=== PATIENT | male | born 1945 | race Caucasian/White ===

== ENCOUNTER 2018-09-07 19:32 | Inpatient (IN) | payer MEDICARE, MEDICAID ==
--- NOTE | 2018-09-07 19:54 | ED Physician Chart ---
ED Chief Complaint/HPI - Patient Information Date Seen:: 09/07/18 Time Seen:: 19:49 Chief Complaint:: trying to kill himself History of Present Illness:: this is a 72 yo male who was sent from the retirement for evaluation and treatment of his mental condition. Allergies:: Allergies Allergy/AdvReac Type Severity Reaction Status Date / Time benztropine [From Cogentin] Allergy Verified 09/07/18 19:37 fluphenazine [From Prolixin] Allergy Verified 09/07/18 19:37 haloperidol [From Haldol] Allergy Verified 09/07/18 19:37 fluoride Allergy Uncoded 09/07/18 19:37 Vitals:: Vital Signs - 8 hr 09/07/18 19:38 Temp 97.1 F HR 92 RR 17 BP 154/76 O2 Sat % 97 Historian:: Medical Records Review:: Nurse's Note Reviewed, Old Chart Reviewed ED Review of Systems - Review of Systems General/Constitutional: No fever, No chills, No weight loss, No weakness, No diaphoresis, No edema, No loss of appetite, Other (this patient is unable to give a review of systems.) Skin: No skin lesions, No rash, No bruising Head: No headache, No light-headedness Eyes: No loss of vision, No pain, No diplopia ENT: No earache, No nasal drainage, No sore throat, No tinnitus Neck: No neck pain, No swelling, No thyromegaly, No stiffness, No mass noted Cardio Vascular: No chest pain, No palpitations, No PND, No orthopnea, No edema Pulmonary: No SOB, No cough, No sputum, No wheezing GI: No nausea, No vomiting, No diarrhea, No pain, No melena, No hematochezia, No constipation, No hematemesis G/U: No dysuria, No frequency, No hematuria Musculoskeletal: No bone or joint pain, No back pain, No muscle pain Endocrine: No polyuria, No polydipsia Psychiatric: No prior psych history, No depression, No anxiety, No suicidal ideation Hematopoietic: No bruising, No lymphadenopathy Allergic/Immuno: No urticaria, No angioedema Neurological: No syncope, No focal symptoms, No weakness, No paresthesia, No headache, No seizure, No dizziness, No confusion, No vertigo ED Past Medical History - Past Medical History Obtainable: Yes Past Medical History: HTN, DM, CAD, Dyslipidemia, PUD/GERD, Thyroid disorder, Dementia Family History: None Social History: Non Smoker, No Alcohol, No Drug Use Surgical History: None Psychiatricy History: Depression, Dementia Medication: Reviewed Family Medical History - Family Member Mother History Unknown: Yes ED Physical Exam - Physical Examination General/Constitutional: Awake, Well-developed, well-nourished, Alert, No distress, GCS 15, Non-toxic appearing, Ambulatory Other Gen/Cons comments:: chorea and restless and talking at random Head: Atraumatic Eyes: Lids, conjuctiva normal, PERRL, EOMI Skin: Nl inspection, No rash, No skin lesions, No ecchymosis, Well hydrated, No lymphadenopathy ENMT: External ears, nose nl, Nasal exam nl, Lips, teeth, gums nl Neck: Nontender, Full ROM w/o pain, No JVD, No nuchal rigidity, No bruit, No mass, No stridor Respiratory: Nl effort/Exclusion, Clear to Auscultation, No Wheeze/Rhonchi/Rales Cardio Vascular: No murmur, gallop, rubs, NL S1 S2 Other Cardio Vascular comments:: atrial fib GI: No tenderness/rebounding/guarding, No organomegaly, No hernia, Normal BS's, Nondistended, No mass/bruits, No McBurney tenderness : No CVA tenderness Extremities: No tenderness or effusion, Full ROM, normal strength in all extremities, No edema, Normal digits & nails Neuro/Psych: Alert/oriented, DTR's symmetric, Normal sensory exam, Normal motor strength, Judgement/insight normal, Mood normal, Normal gait, No focal deficits Misc: Normal back, No paraspinal tenderness ED Labs/Radiology/EKG Results - EKG Interpretations EKG Time:: 20:36 Rate & Rhythm: rate=86, atrial fib ED Assessment - Assessment General Assessment: dementia ED Septic Shock - . Is Septic Shock (SBP<90, OR Lactate>4 mmol\L) present?: No - <6hrs of presentation: Vital Signs: Vital Signs - 8 hr 09/07/18 19:38 Temp 97.1 F HR 92 RR 17 BP 154/76 O2 Sat % 97 ED Reassessment (Disposition) - Reassessment Reassessment Condition:: Unchanged - Diagnosis Diagnosis:: psychosis - Patient Disposition Discharge/Transfer:: Acute Care w/in this hosp Admitting Medical Physician:: Seamus Gomez Admitting Psych Physician:: Yamileth Mojica Condition at Disposition:: Unchanged
[2018-09-07 21:05] LABS: % BASOPHILS 0.5 % (0.0-2.0); % LYMPHOCYTES 14.4 % (20.0-50.0); % MONOCYTES 9.3 % (2.0-10.0); % NEUTROPHILS 74.8 % (40.0-80.0); EOSINOPHILE ABSOLUTE 0.1 Th/cmm (0.1-0.4); HEMATOCRIT 34.1 % (41.0-60); HEMOGLOBIN 11.1 gm/dL (12-16); LYMPHOCYTE ABSOLUTE 0.9 Th/cmm (1.5-3.0); MEAN CELL VOLUME 72.4 fl (80-99); MEAN CORPUSCULAR HEMOGLOBIN 23.5 pg (27.0-31.0); MEAN CORPUSCULAR HGB CONC 32.5 pg (28.0-36.0); MEAN PLATELET VOLUME 8.4 fl; MONOCYTE ABSOLUTE 0.6 Th/cmm (0.3-1.0); NEUTROPHILE ABSOLUTE 4.4 Th/cmm (1.8-8.0); PLATELET COUNT 317 Th/cmm (150-400); RED BLOOD COUNT 4.71 Mil/cmm (3.80-5.80); RED CELL DISTRIBUTION WIDTH 19.3 % (11.5-20.0)
[2018-09-07 21:06] LABS: INR 1.03 (0.5-1.4); PROTHROMBIN TIME (TEST) 10.7 SECONDS (9.5-11.5)
[2018-09-07 21:16] LABS: ALB/GLOB RATIO 2.2 (1.0-1.8); ALBUMIN 4.1 gm/dL (4.2-5.5); ALKALINE PHOSPHATASE 46 U/L (34-104); ANION GAP 15.2 (7.0-16.0); BILIRUBIN,TOTAL 0.3 mg/dL (0.3-1.0); BUN - UREA NITROGEN 17 mg/dL (7-25); CALCIUM SERUM 9.1 mg/dL (8.6-10.3); CARBON DIOXIDE 27.8 mEq/L (21.0-31.0); CHLORIDE 99 mEq/L (98-107); CREATININE - SERUM 0.5 mg/dL (0.7-1.3); GLUCOSE 110 mg/dL (70-105); SGOT 11 U/L (13-39); SGPT/ALT 11 U/L (7-52); SODIUM SERUM 138 mEq/L (136-145)
[2018-09-07 22:08] VITALS: BP 134/80
[2018-09-07] MEDS ORDERED: Maalox 30 mL Cup PO PRN (22:13)
[2018-09-07] MEDS ORDERED: Magnesium Hydroxide (MOM) 30 mL UDC PO PRN (22:13)
[2018-09-07 22:32] LABS: CHOLESTEROL 103 mg/dL (<200); HDL -HIGH DENSITY LIPOPROTEIN 38 mg/dL (23-92); TRIGLYCERIDES 96 mg/dL (<150)
[2018-09-08] MEDS: Levothyroxine 0.025 Mg Tab PO SCH (06:34)
[2018-09-08] MEDS: Pantoprazole 40 mg EC Tab PO SCH (09:07)
[2018-09-08] MEDS: Multivitamin w/ Minerals Tab PO SCH (09:08)
[2018-09-08] MEDS: Fish Oil 1,000 MG SGL PO SCH (09:08)
--- NOTE | 2018-09-08 10:47 | Diagnostic Imaging Report ---
Portable chest x-ray HISTORY: Cough The heart appears enlarged. There is a poor inspiration. Allowing for this factor, no definite focal processes are seen. Atherosclerotic calcination seen in the aorta. Mild sclerotic density noted within the medullary region of the proximal right humerus. Findings may be associated with an enchondroma. IMPRESSION: 1. Allowing for a poor inspiration, no acute focal pulmonary processes 2. Cardiomegaly with atherosclerotic vascular changes
--- NOTE | 2018-09-08 18:38 | Psychiatric Evaluation ---
DATE OF SERVICE: 09/08/2018 JUSTIFICATION FOR HOSPITALIZATION: The patient apparently was having thoughts of killing himself. HISTORY OF PRESENT ILLNESS: A 72-year-old male, AO to name. He knows he is in a psychiatric hospital. He is not quite sure about why he is here, he knows the city, he knows it is 2018 and tells me it is 1946, does not know the month. Mood "okay." The patient slept fairly well last night with opener tender awakenings. The patient is not a very good historian, not really able to converse and not able to tell me why he is in the hospital. Staff noting he seems quite confused. PAST PSYCHIATRIC HISTORY: Unclear, concerns for dementia. FAMILY HISTORY: Noncontributory. SOCIAL HISTORY: Coming in from a care home. The patient tells me he was born in [place], [place]; states that he is not and has no kids. MEDICATIONS: Noted. ALLERGIES: Noted. MENTAL STATUS EXAMINATION: Stated age. Fair eye contact. Speech within normal limits. Mood "okay." Affect flat. Thought processes were disoriented and disorganized, no SI currently, no HI. No psychotic symptoms. Insight and judgment diminished. PROVISIONAL DIAGNOSES: History of schizoaffective disorder. Concerns for dementia. MEDICAL: Please see full H and P. Medications were reviewed as well. ESTIMATED LENGTH OF STAY: 7-10 days. ASSESSMENT: The patient coming in, suicidal ideations. Concerns for safety. PLAN: Treatment plan includes group as well as milieu therapy. CONDITIONS FOR DISCHARGE: Improved mood, improved affect, cessation of any SI. JOB# [id number]
[2018-09-08] MEDS ORDERED: Dextrose 50% 50 mL Abboject IVP PRN (19:02)
[2018-09-08] MEDS ORDERED: GLUCAGON HCl 1 MG KIT IM PRN (19:02)
--- NOTE | 2018-09-08 19:33 | History & Physical ---
ADMIT DATE: 09/07/2018 REASON FOR ADMISSION: Suicidal ideation. HISTORY OF PRESENT ILLNESS: A 72-year-old male with past medical history of psychiatric disorder, presents from half-way for evaluation of suicidal ideation. The patient is a poor historian. He appears forgetful and unable to recall to his various conditions. History is taken from records. The patient appears to be in no distress. He is walking in the hallways aimlessly. PAST MEDICAL HISTORY: The patient has history of diabetes mellitus type 2, atrial fibrillation, hypertension, seizure disorder, hyperlipidemia, hypothyroidism, gastroesophageal reflux disorder and psychiatric disorder. MEDICATIONS: As per reconciliation. ALLERGIES: No known drug allergies. SOCIAL HISTORY: No known tobacco, alcohol, or drug use. FAMILY HISTORY: Noncontributory. REVIEW OF SYSTEMS: IMMUNOLOGIC: No recurrent infection. CARDIOVASCULAR: The patient has history of atrial fibrillation and hypertension. GASTROINTESTINAL: No nausea, vomiting, diarrhea. ENDOCRINE: The patient is diabetic and has thyroid disorder. NEUROLOGIC: The patient apparently has seizure disorder. No known stroke history. HEMATOLOGIC: No bleeding or clotting. The patient is on anticoagulation for atrial fibrillation. PHYSICAL EXAMINATION: GENERAL: The patient is awake and alert, albeit confused. He is in no acute distress and ambulatory. VITAL SIGNS: Temperature 97.7, pulse 98, respiration 20, blood pressure 135/82. HEENT: Pupils equally round, anicteric sclerae. NECK: Supple, no JVD, mass or bruit. LUNGS: Clear to auscultation. HEART: S1, S2, regular rate and rhythm. ABDOMEN: Soft, nontender, positive bowel sounds. EXTREMITIES: No clubbing, cyanosis or edema. NEUROLOGIC: Grossly intact. No focal deficit. LABORATORY DATA: Hemoglobin is 11.1, hematocrit 34.1, glucose is 110, albumin is 4.1. ASSESSMENT: 1. Mental health disorder. 2. Seizure disorder. 3. Hyperlipidemia. 4. Diabetes mellitus. 5. Hypertension. 6. Hyperlipidemia. 7. Hypothyroidism. 8. Gastroesophageal reflux disorder. 9. Atrial fibrillation. 10. Anemia. PLAN: Admit to [place] and continue the patient's usual medications and glycemic control with regular insulin sliding scale. The patient is medically cleared to participate in activity. He is to follow up with primary care physician upon discharge. JOB# [id number]
[2018-09-08] MEDS: Atorvastatin Calcium 10 MG TAB PO SCH (21:45)
[2018-09-08] MEDS: INSULIN LISPRO SLIDING SCALE 100 UNITS/ML UNIT SUBQ SCH (23:12)
[2018-09-09] MEDS: Levothyroxine 0.025 Mg Tab PO SCH (06:35)
[2018-09-09] MEDS: INSULIN LISPRO SLIDING SCALE 100 UNITS/ML UNIT SUBQ SCH ×4 (06:35→20:29)
[2018-09-09] MEDS: Pantoprazole 40 mg EC Tab PO SCH (08:22)
[2018-09-09] MEDS: Fish Oil 1,000 MG SGL PO SCH (08:22)
[2018-09-09] MEDS: Multivitamin w/ Minerals Tab PO SCH (08:22)
--- NOTE | 2018-09-09 14:21 | General Progress Note ---
Subjective - Review of Systems Service Date: 09/09/18 Events since last encounter: DM HTN hypothyroidism A. fib Subjective: resting comfortably no distress Objective - Results Result Diagrams: 09/07/18 20:00 09/07/18 20:00 Recent Labs: Laboratory Last Values WBC 6.0 Th/cmm (4.8-10.8) 09/07/18 20:00 RBC 4.71 Mil/cmm (3.80-5.80) 09/07/18 20:00 Hgb 11.1 gm/dL (12-16) L 09/07/18 20:00 Hct 34.1 % (41.0-60) L 09/07/18 20:00 MCV 72.4 fl (80-99) L 09/07/18 20:00 MCH 23.5 pg (27.0-31.0) L 09/07/18 20:00 MCHC Differential 32.5 pg (28.0-36.0) 09/07/18 20:00 RDW 19.3 % (11.5-20.0) 09/07/18 20:00 Plt Count 317 Th/cmm (150-400) 09/07/18 20:00 MPV 8.4 fl 09/07/18 20:00 Neutrophils % 74.8 % (40.0-80.0) 09/07/18 20:00 Lymphocytes % 14.4 % (20.0-50.0) L 09/07/18 20:00 Monocytes % 9.3 % (2.0-10.0) 09/07/18 20:00 Eosinophils % 1.0 % (0.0-5.0) 09/07/18 20:00 Basophils % 0.5 % (0.0-2.0) 09/07/18 20:00 PT 10.7 SECONDS (9.5-11.5) 09/07/18 20:00 INR 1.03 (0.5-1.4) 09/07/18 20:00 Sodium 138 mEq/L (136-145) 09/07/18 20:00 Potassium 4.0 mEq/L (3.5-5.1) 09/07/18 20:00 Chloride 99 mEq/L (98-107) 09/07/18 20:00 Carbon Dioxide 27.8 mEq/L (21.0-31.0) 09/07/18 20:00 Anion Gap 15.2 (7.0-16.0) 09/07/18 20:00 BUN 17 mg/dL (7-25) 09/07/18 20:00 Creatinine 0.5 mg/dL (0.7-1.3) L 09/07/18 20:00 Est GFR ( Amer) TNP 09/07/18 20:00 Est GFR (Non-Af Amer) TNP 09/07/18 20:00 BUN/Creatinine Ratio 34.0 09/07/18 20:00 Glucose 110 mg/dL (70-105) H 09/07/18 20:00 POC Glucose 66 MG/DL (70 - 105) L 09/09/18 11:45 Calcium 9.1 mg/dL (8.6-10.3) 09/07/18 20:00 Total Bilirubin 0.3 mg/dL (0.3-1.0) 09/07/18 20:00 AST 11 U/L (13-39) L 09/07/18 20:00 ALT 11 U/L (7-52) 09/07/18 20:00 Alkaline Phosphatase 46 U/L (34-104) 09/07/18 20:00 Troponin I < 0.01 ng/mL (0.01-0.05) L 09/07/18 20:00 Total Protein 6.0 gm/dL (6.0-8.3) 09/07/18 20:00 Albumin 4.1 gm/dL (4.2-5.5) L 09/07/18 20:00 Globulin 1.9 gm/dL 09/07/18 20:00 Albumin/Globulin Ratio 2.2 (1.0-1.8) H 09/07/18 20:00 Triglycerides 96 mg/dL (<150) 09/07/18 20:00 Cholesterol 103 mg/dL (<200) 09/07/18 20:00 LDL Cholesterol Direct 59 mg/dL (75-193) L 09/07/18 20:00 HDL Cholesterol 38 mg/dL (23-92) 09/07/18 20:00 TSH 2.06 uIU/ml (0.34-5.60) 09/07/18 20:00 - Physical Exam Vitals and I&O: Vital Signs Temp 97.8 F 09/08/18 20:47 Pulse 100 09/09/18 08:23 Resp 20 09/08/18 20:47 BP 145/76 09/09/18 08:23 Pulse Ox 97 09/08/18 20:47 Intake & Output 09/08/18 09/09/18 09/09/18 18:59 06:59 18:59 Intake Total 240 Balance 240 Intake: Oral 240 Other: # Voids 1 Stool Characteristics Formed Formed Formed Active Medications: Current Medications Acetaminophen (Tylenol) 650 mg PO Q4H PRN PRN Reason: Pain or Fever >101 Stop: 11/07/18 00:09 Al Hydrox/Mg Hydrox/Simethicone (Maalox) 30 ml PO Q6HR PRN PRN Reason: GI DISTRESS Stop: 11/06/18 22:12 Ascorbic Acid (Vitamin C) 250 mg PO DAILY [facility] Stop: 11/07/18 08:59 Last Admin: 09/09/18 08:22 Dose: 250 mg Atorvastatin Calcium (Lipitor) 5 mg PO HS [facility]; Protocol Stop: 11/07/18 20:59 Last Admin: 09/08/18 21:45 Dose: 5 mg Dextrose (D50w) 50 ml IVP PRN PRN PRN Reason: Blood Glucose less than 70 Stop: 11/07/18 19:01 Dextrose (Glutose 40%) 18.75 gm PO PRN PRN PRN Reason: Blood Glucose less than 70 Stop: 11/07/18 19:01 Docusate Sodium (Colace) 250 mg PO DAILY [facility] Stop: 11/07/18 08:59 Last Admin: 09/09/18 08:22 Dose: 250 mg Fish Oil ([place] 3) 1,000 mg PO DAILY [facility] Stop: 11/07/18 08:59 Last Admin: 09/09/18 08:22 Dose: 1,000 mg Glucagon (Glucagen) 1 mg IM PRN PRN PRN Reason: Blood Glucose less than 70 Stop: 11/07/18 19:01 Insulin Human Lispro (Humalog Insulin Sliding Scale) 0 units SUBQ [facility]; Protocol Stop: 11/07/18 20:59 Last Admin: 09/09/18 11:53 Dose: Not Given Levetiracetam (Keppra) 500 mg PO BID [facility] Stop: 11/07/18 08:59 Last Admin: 09/09/18 08:22 Dose: 500 mg Levothyroxine Sodium (Synthroid) 0.025 mg PO QDAC [facility] Stop: 11/07/18 07:29 Last Admin: 09/09/18 06:35 Dose: 0.025 mg Lorazepam (Ativan) 0.5 mg PO DAILY [facility]; Protocol Stop: 11/07/18 08:59 Last Admin: 09/09/18 08:22 Dose: 0.5 mg Magnesium Hydroxide (Milk Of Magnesia) 30 ml PO HS PRN PRN Reason: Constipation Stop: 11/06/18 22:12 Metformin HCl (Glucophage) 1,000 mg PO BIDWM [facility] Stop: 11/07/18 07:59 Last Admin: 09/09/18 08:22 Dose: 1,000 mg Metoprolol Tartrate (Lopressor) 25 mg PO Q12H [facility] Stop: 11/07/18 08:59 Last Admin: 09/09/18 08:23 Dose: 25 mg Olanzapine (Zyprexa) 10 mg PO BID [facility]; Protocol Stop: 11/08/18 16:59 Pantoprazole Sodium (Protonix) 40 mg PO DAILY [facility] Stop: 11/07/18 08:59 Last Admin: 09/09/18 08:22 Dose: 40 mg Rivaroxaban (Xarelto) 20 mg PO QPM [facility] Stop: 11/07/18 20:59 Last Admin: 09/08/18 23:13 Dose: Not Given Zolpidem Tartrate (Ambien) 5 mg PO HS PRN PRN Reason: Insomnia Stop: 11/06/18 22:07 Last Admin: 09/08/18 21:45 Dose: 5 mg General: No acute distress HEENT: Atraumatic Neck: Supple, JVD, Thyromegaly Cardiovascular: Regular rate, Normal S1, Normal S2 Lungs: Clear to auscultation Abdomen: Bowel sounds, Soft Assessment/Plan - Assessment Assessment: DM HTN hypothryid A. fib - Plan Plan: continue current treatment
[2018-09-09] MEDS: Atorvastatin Calcium 10 MG TAB PO SCH (20:27)
[2018-09-10] MEDS: Levothyroxine 0.025 Mg Tab PO SCH (06:38)
[2018-09-10] MEDS: INSULIN LISPRO SLIDING SCALE 100 UNITS/ML UNIT SUBQ SCH ×4 (06:38→20:31)
[2018-09-10] MEDS: Fish Oil 1,000 MG SGL PO SCH (09:13)
[2018-09-10] MEDS: Multivitamin w/ Minerals Tab PO SCH (09:14)
[2018-09-10] MEDS: Pantoprazole 40 mg EC Tab PO SCH (09:15)
--- NOTE | 2018-09-10 13:42 | Progress Notes ---
DATE: 09/09/2018 PSYCHIATRIC PROGRESS NOTE SUBJECTIVE: Chart reviewed and the patient interviewed. Also discussed the patient's condition with the staff and reviewed records and labs. The patient is still agitated and is still in irritable mood. The patient also is still aggressive with the staff and still confused and needs lots of redirections. The patient also has difficulty following directions and has difficulty following instructions. Otherwise, the patient is compliant with taking medications with no side effects of medications. ASSESSMENT: The patient is still psychotic and is still agitated. TREATMENT PLAN: Continue to monitor behavior and condition closely. Also, continue to work on poor impulse control and ineffective coping. Also, Zyprexa be given in a dose of 5 mg 3 times a day and will continue to follow up. [facility]# [id number]
[2018-09-10] MEDS: Atorvastatin Calcium 10 MG TAB PO SCH (20:30)
--- NOTE | 2018-09-10 21:21 | Internal Medicine Prog Note ---
Internal Medicine Subjective - Subjective Service Date: 09/10/18 Patient seen and examined:: with staff Patient is:: awake, verbal, in bed, confused Per staff patient has:: no adverse event Internal Medicine Objective - Results Result Diagrams: 09/07/18 20:00 09/07/18 20:00 Recent Labs: Laboratory Last Values WBC 6.0 Th/cmm (4.8-10.8) 09/07/18 20:00 RBC 4.71 Mil/cmm (3.80-5.80) 09/07/18 20:00 Hgb 11.1 gm/dL (12-16) L 09/07/18 20:00 Hct 34.1 % (41.0-60) L 09/07/18 20:00 MCV 72.4 fl (80-99) L 09/07/18 20:00 MCH 23.5 pg (27.0-31.0) L 09/07/18 20:00 MCHC Differential 32.5 pg (28.0-36.0) 09/07/18 20:00 RDW 19.3 % (11.5-20.0) 09/07/18 20:00 Plt Count 317 Th/cmm (150-400) 09/07/18 20:00 MPV 8.4 fl 09/07/18 20:00 Neutrophils % 74.8 % (40.0-80.0) 09/07/18 20:00 Lymphocytes % 14.4 % (20.0-50.0) L 09/07/18 20:00 Monocytes % 9.3 % (2.0-10.0) 09/07/18 20:00 Eosinophils % 1.0 % (0.0-5.0) 09/07/18 20:00 Basophils % 0.5 % (0.0-2.0) 09/07/18 20:00 PT 10.7 SECONDS (9.5-11.5) 09/07/18 20:00 INR 1.03 (0.5-1.4) 09/07/18 20:00 Sodium 138 mEq/L (136-145) 09/07/18 20:00 Potassium 4.0 mEq/L (3.5-5.1) 09/07/18 20:00 Chloride 99 mEq/L (98-107) 09/07/18 20:00 Carbon Dioxide 27.8 mEq/L (21.0-31.0) 09/07/18 20:00 Anion Gap 15.2 (7.0-16.0) 09/07/18 20:00 BUN 17 mg/dL (7-25) 09/07/18 20:00 Creatinine 0.5 mg/dL (0.7-1.3) L 09/07/18 20:00 Est GFR ( Amer) TNP 09/07/18 20:00 Est GFR (Non-Af Amer) TNP 09/07/18 20:00 BUN/Creatinine Ratio 34.0 09/07/18 20:00 Glucose 110 mg/dL (70-105) H 09/07/18 20:00 POC Glucose 153 MG/DL (70 - 105) H 09/10/18 19:45 Calcium 9.1 mg/dL (8.6-10.3) 09/07/18 20:00 Total Bilirubin 0.3 mg/dL (0.3-1.0) 09/07/18 20:00 AST 11 U/L (13-39) L 09/07/18 20:00 ALT 11 U/L (7-52) 09/07/18 20:00 Alkaline Phosphatase 46 U/L (34-104) 09/07/18 20:00 Troponin I < 0.01 ng/mL (0.01-0.05) L 09/07/18 20:00 Total Protein 6.0 gm/dL (6.0-8.3) 09/07/18 20:00 Albumin 4.1 gm/dL (4.2-5.5) L 09/07/18 20:00 Globulin 1.9 gm/dL 09/07/18 20:00 Albumin/Globulin Ratio 2.2 (1.0-1.8) H 09/07/18 20:00 Triglycerides 96 mg/dL (<150) 09/07/18 20:00 Cholesterol 103 mg/dL (<200) 09/07/18 20:00 LDL Cholesterol Direct 59 mg/dL (75-193) L 09/07/18 20:00 HDL Cholesterol 38 mg/dL (23-92) 09/07/18 20:00 TSH 2.06 uIU/ml (0.34-5.60) 09/07/18 20:00 - Physical Exam Vitals and I&O: Vital Signs Temp 97.8 F 09/10/18 20:18 Pulse 100 09/10/18 20:30 Resp 18 09/10/18 20:18 BP 132/70 09/10/18 20:30 Pulse Ox 97 09/10/18 20:18 Intake & Output 09/10/18 09/10/18 09/11/18 06:59 18:59 06:59 Intake Total 720 900 120 Balance 720 900 120 Intake: Oral 720 900 120 Other: # Voids 1 3 3 # Bowel Movements 1 0 Stool Characteristics Formed Active Medications: Current Medications Acetaminophen (Tylenol) 650 mg PO Q4H PRN PRN Reason: Pain or Fever >101 Stop: 11/07/18 00:09 Al Hydrox/Mg Hydrox/Simethicone (Maalox) 30 ml PO Q6HR PRN PRN Reason: GI DISTRESS Stop: 11/06/18 22:12 Ascorbic Acid (Vitamin C) 250 mg PO DAILY [facility] Stop: 11/07/18 08:59 Last Admin: 09/10/18 09:12 Dose: 250 mg Atorvastatin Calcium (Lipitor) 5 mg PO HS [facility]; Protocol Stop: 11/07/18 20:59 Last Admin: 09/10/18 20:30 Dose: 5 mg Dextrose (D50w) 50 ml IVP PRN PRN PRN Reason: Blood Glucose less than 70 Stop: 11/07/18 19:01 Dextrose (Glutose 40%) 18.75 gm PO PRN PRN PRN Reason: Blood Glucose less than 70 Stop: 11/07/18 19:01 Docusate Sodium (Colace) 250 mg PO DAILY [facility] Stop: 11/07/18 08:59 Last Admin: 09/10/18 09:13 Dose: 250 mg Fish Oil ([place] 3) 1,000 mg PO DAILY [facility] Stop: 11/07/18 08:59 Last Admin: 09/10/18 09:13 Dose: 1,000 mg Glucagon (Glucagen) 1 mg IM PRN PRN PRN Reason: Blood Glucose less than 70 Stop: 11/07/18 19:01 Insulin Human Lispro (Humalog Insulin Sliding Scale) 0 units SUBQ [facility]; Protocol Stop: 11/07/18 20:59 Last Admin: 09/10/18 20:31 Dose: 2 units Levetiracetam (Keppra) 500 mg PO BID [facility] Stop: 11/07/18 08:59 Last Admin: 09/10/18 16:51 Dose: 500 mg Levothyroxine Sodium (Synthroid) 0.025 mg PO QDAC [facility] Stop: 11/07/18 07:29 Last Admin: 09/10/18 06:38 Dose: 0.025 mg Lorazepam (Ativan) 0.5 mg PO DAILY [facility]; Protocol Stop: 11/07/18 08:59 Last Admin: 09/10/18 09:13 Dose: 0.5 mg Lorazepam (Ativan) 1 mg PO Q4H PRN; Protocol PRN Reason: Agitation Stop: 11/08/18 14:33 Magnesium Hydroxide (Milk Of Magnesia) 30 ml PO HS PRN PRN Reason: Constipation Stop: 11/06/18 22:12 Metformin HCl (Glucophage) 1,000 mg PO BIDWM [facility] Stop: 11/07/18 07:59 Last Admin: 09/10/18 17:34 Dose: 1,000 mg Metoprolol Tartrate (Lopressor) 25 mg PO Q12H [facility] Stop: 11/07/18 08:59 Last Admin: 09/10/18 20:30 Dose: 25 mg Olanzapine (Zyprexa) 10 mg PO BID [facility]; Protocol Stop: 11/08/18 16:59 Last Admin: 09/10/18 16:51 Dose: 10 mg Pantoprazole Sodium (Protonix) 40 mg PO DAILY [facility] Stop: 11/07/18 08:59 Last Admin: 09/10/18 09:15 Dose: 40 mg Rivaroxaban (Xarelto) 20 mg PO QPM [facility] Stop: 11/07/18 20:59 Last Admin: 09/10/18 16:51 Dose: 20 mg Zolpidem Tartrate (Ambien) 5 mg PO HS PRN PRN Reason: Insomnia Stop: 11/06/18 22:07 Last Admin: 09/10/18 20:30 Dose: 5 mg General: alert HEENT: NC/AT, PERRLA, EOMI, anicteric sclerae, throat clear Neck: No JVD, No thyromegaly, +2 carotid pulse wo bruit, No LAD Lungs: CTAB Cardiovascular: Normal S1, Normal S2, without murmur Abdomen: soft, non-tender, non-distended Extremities: clear Neurological: no change, alert Internal Medicine Assmt/Plan - Assessment Assessment: 1.DM. 2.HTN. 3.HYPOTHYROIDISM. 4.PSYCHOSIS - Plan Plan: CONTINUE ON CURRENT MEDICATION AND DIET.
--- NOTE | 2018-09-11 03:18 | Progress Notes ---
DATE: 09/10/2018 SUBJECTIVE: Chart reviewed and the patient interviewed. Also discussed the patient's condition with the staff and reviewed the records and labs. The patient remains in irritable and angry mood and the patient is still easily agitated. The patient also is still forgetful and has difficulty following any of staff's directions. The patient also wants to be left alone. Otherwise, the patient is compliant with taking his medications with no side effect of medications. ASSESSMENT: The patient is still agitated and is still psychotic and needs close monitoring. TREATMENT PLAN: Continue monitoring behavior and condition closely. Also, continue adjusting psychotropic medications and follow up closely. JOB# [id number]
[2018-09-11] MEDS: INSULIN LISPRO SLIDING SCALE 100 UNITS/ML UNIT SUBQ SCH ×4 (07:02→20:54)
[2018-09-11] MEDS: Levothyroxine 0.025 Mg Tab PO SCH (07:03)
[2018-09-11] MEDS: Fish Oil 1,000 MG SGL PO SCH (08:50)
[2018-09-11] MEDS: Multivitamin w/ Minerals Tab PO SCH (08:51)
[2018-09-11] MEDS: Pantoprazole 40 mg EC Tab PO SCH (08:52)
--- NOTE | 2018-09-11 19:10 | Internal Medicine Prog Note ---
Internal Medicine Subjective - Subjective Service Date: 09/11/18 Patient seen and examined:: with staff Patient is:: awake, verbal, in bed, confused Per staff patient has:: no adverse event Internal Medicine Objective - Results Result Diagrams: 09/07/18 20:00 09/07/18 20:00 Recent Labs: Laboratory Last Values WBC 6.0 Th/cmm (4.8-10.8) 09/07/18 20:00 RBC 4.71 Mil/cmm (3.80-5.80) 09/07/18 20:00 Hgb 11.1 gm/dL (12-16) L 09/07/18 20:00 Hct 34.1 % (41.0-60) L 09/07/18 20:00 MCV 72.4 fl (80-99) L 09/07/18 20:00 MCH 23.5 pg (27.0-31.0) L 09/07/18 20:00 MCHC Differential 32.5 pg (28.0-36.0) 09/07/18 20:00 RDW 19.3 % (11.5-20.0) 09/07/18 20:00 Plt Count 317 Th/cmm (150-400) 09/07/18 20:00 MPV 8.4 fl 09/07/18 20:00 Neutrophils % 74.8 % (40.0-80.0) 09/07/18 20:00 Lymphocytes % 14.4 % (20.0-50.0) L 09/07/18 20:00 Monocytes % 9.3 % (2.0-10.0) 09/07/18 20:00 Eosinophils % 1.0 % (0.0-5.0) 09/07/18 20:00 Basophils % 0.5 % (0.0-2.0) 09/07/18 20:00 PT 10.7 SECONDS (9.5-11.5) 09/07/18 20:00 INR 1.03 (0.5-1.4) 09/07/18 20:00 Sodium 138 mEq/L (136-145) 09/07/18 20:00 Potassium 4.0 mEq/L (3.5-5.1) 09/07/18 20:00 Chloride 99 mEq/L (98-107) 09/07/18 20:00 Carbon Dioxide 27.8 mEq/L (21.0-31.0) 09/07/18 20:00 Anion Gap 15.2 (7.0-16.0) 09/07/18 20:00 BUN 17 mg/dL (7-25) 09/07/18 20:00 Creatinine 0.5 mg/dL (0.7-1.3) L 09/07/18 20:00 Est GFR ( Amer) TNP 09/07/18 20:00 Est GFR (Non-Af Amer) TNP 09/07/18 20:00 BUN/Creatinine Ratio 34.0 09/07/18 20:00 Glucose 110 mg/dL (70-105) H 09/07/18 20:00 POC Glucose 155 MG/DL (70 - 105) H 09/11/18 16:47 Calcium 9.1 mg/dL (8.6-10.3) 09/07/18 20:00 Total Bilirubin 0.3 mg/dL (0.3-1.0) 09/07/18 20:00 AST 11 U/L (13-39) L 09/07/18 20:00 ALT 11 U/L (7-52) 09/07/18 20:00 Alkaline Phosphatase 46 U/L (34-104) 09/07/18 20:00 Troponin I < 0.01 ng/mL (0.01-0.05) L 09/07/18 20:00 Total Protein 6.0 gm/dL (6.0-8.3) 09/07/18 20:00 Albumin 4.1 gm/dL (4.2-5.5) L 09/07/18 20:00 Globulin 1.9 gm/dL 09/07/18 20:00 Albumin/Globulin Ratio 2.2 (1.0-1.8) H 09/07/18 20:00 Triglycerides 96 mg/dL (<150) 09/07/18 20:00 Cholesterol 103 mg/dL (<200) 09/07/18 20:00 LDL Cholesterol Direct 59 mg/dL (75-193) L 09/07/18 20:00 HDL Cholesterol 38 mg/dL (23-92) 09/07/18 20:00 TSH 2.06 uIU/ml (0.34-5.60) 09/07/18 20:00 Levetiracetam 17.0 ug/mL (10.0-40.0) 09/07/18 20:00 - Physical Exam Vitals and I&O: Vital Signs Temp 98.6 F 09/11/18 14:00 Pulse 89 09/11/18 14:00 Resp 20 09/11/18 14:00 BP 146/81 09/11/18 14:00 Pulse Ox 99 09/11/18 14:00 Intake & Output 09/11/18 09/11/18 09/12/18 06:59 18:59 06:59 Intake Total 120 800 Balance 120 800 Intake: Oral 120 800 Other: # Voids 1 3 # Bowel Movements 0 0 Active Medications: Current Medications Acetaminophen (Tylenol) 650 mg PO Q4H PRN PRN Reason: Pain or Fever >101 Stop: 11/07/18 00:09 Al Hydrox/Mg Hydrox/Simethicone (Maalox) 30 ml PO Q6HR PRN PRN Reason: GI DISTRESS Stop: 11/06/18 22:12 Ascorbic Acid (Vitamin C) 250 mg PO DAILY [facility] Stop: 11/07/18 08:59 Last Admin: 09/11/18 08:49 Dose: 250 mg Atorvastatin Calcium (Lipitor) 5 mg PO HS [facility]; Protocol Stop: 11/07/18 20:59 Last Admin: 09/10/18 20:30 Dose: 5 mg Dextrose (D50w) 50 ml IVP PRN PRN PRN Reason: Blood Glucose less than 70 Stop: 11/07/18 19:01 Dextrose (Glutose 40%) 18.75 gm PO PRN PRN PRN Reason: Blood Glucose less than 70 Stop: 11/07/18 19:01 Docusate Sodium (Colace) 250 mg PO DAILY [facility] Stop: 11/07/18 08:59 Last Admin: 09/11/18 08:50 Dose: 250 mg Fish Oil ([place] 3) 1,000 mg PO DAILY [facility] Stop: 11/07/18 08:59 Last Admin: 09/11/18 08:50 Dose: 1,000 mg Glucagon (Glucagen) 1 mg IM PRN PRN PRN Reason: Blood Glucose less than 70 Stop: 11/07/18 19:01 Insulin Human Lispro (Humalog Insulin Sliding Scale) 0 units SUBQ ACHS [facility]; Protocol Stop: 11/07/18 20:59 Last Admin: 09/11/18 17:09 Dose: 2 units Levetiracetam (Keppra) 500 mg PO BID [facility] Stop: 11/07/18 08:59 Last Admin: 09/11/18 17:09 Dose: 500 mg Levothyroxine Sodium (Synthroid) 0.025 mg PO QDAC [facility] Stop: 11/07/18 07:29 Last Admin: 09/11/18 07:03 Dose: 0.025 mg Lorazepam (Ativan) 0.5 mg PO DAILY [facility]; Protocol Stop: 11/07/18 08:59 Last Admin: 09/11/18 08:50 Dose: 0.5 mg Lorazepam (Ativan) 1 mg PO Q4H PRN; Protocol PRN Reason: Agitation Stop: 11/08/18 14:33 Last Admin: 09/11/18 17:13 Dose: 1 mg Magnesium Hydroxide (Milk Of Magnesia) 30 ml PO HS PRN PRN Reason: Constipation Stop: 11/06/18 22:12 Metformin HCl (Glucophage) 1,000 mg PO BIDWM [facility] Stop: 11/07/18 07:59 Last Admin: 09/11/18 17:09 Dose: 1,000 mg Metoprolol Tartrate (Lopressor) 25 mg PO Q12H [facility] Stop: 11/07/18 08:59 Last Admin: 09/11/18 08:51 Dose: 25 mg Olanzapine (Zyprexa) 10 mg PO BID [facility]; Protocol Stop: 11/08/18 16:59 Last Admin: 09/11/18 17:08 Dose: 10 mg Pantoprazole Sodium (Protonix) 40 mg PO DAILY [facility] Stop: 11/07/18 08:59 Last Admin: 09/11/18 08:52 Dose: 40 mg Rivaroxaban (Xarelto) 20 mg PO QPM [facility] Stop: 11/07/18 20:59 Last Admin: 09/11/18 17:09 Dose: 20 mg Zolpidem Tartrate (Ambien) 5 mg PO HS PRN PRN Reason: Insomnia Stop: 11/06/18 22:07 Last Admin: 09/10/18 20:30 Dose: 5 mg General: alert HEENT: NC/AT, PERRLA, EOMI, anicteric sclerae, throat clear Neck: No JVD, No thyromegaly, +2 carotid pulse wo bruit, No LAD Lungs: CTAB Cardiovascular: Normal S1, Normal S2, without murmur Abdomen: soft, non-tender, non-distended Extremities: clear Neurological: no change, alert Internal Medicine Assmt/Plan - Assessment Assessment: 1.DM. 2.HTN. 3.HYPOTHYROIDISM. 4.PSYCHOSIS - Plan Plan: CONTINUE ON CURRENT MEDICATION AND DIET. Nutritional Asmnt/Malnutr-PDOC - Dietary Evaluation Malnutrition Findings (Please click <Entered> for more info): Nutritional Asmnt/Malnutrition Start: 09/11/18 14: 17 Text: Status: Complete Freq: Protocol: Document 09/11/18 14:24 LCHENG (Rec: 09/11/18 14:28 [email or web address] [id number]) Nutritional Asmnt/Malnutrition Patient General Information Nutritional Screening Moderate Risk Diagnosis psychosis Pertinent Medical Hx/Surgical Hx HTN, DM, CAD, dyslipidemia, PUD/GERD, thyroid disorder, dementia, deression Subjective Information Pt seen eating lunch in dining room, confused, not able to answer RD questions. Per EMR, PO intake 100%. Current Diet Order/ Nutrition Support PRASANTH CCHO Pertinent Medications vit C, lipitor, colace, omega 3, humalog, synthroid, glucophage, protonix Pertinent Labs 09/10-09/11 POC 87-153 09/07 Cr 0.5, glucose 110, Alb 4.1 Nutritional Hx/Data Height 1.73 m Height (Calculated Centimeters) 172.7 Current Weight (lbs) 63.503 kg Weight (Calculated Kilograms) 63.5 Weight (Calculated Grams) 64879.9 [place] Body Weight 154 Body Mass Index (BMI) 21.2 Weight Status Approriate GI Symptoms GI Symptoms None Last BM 09/10 Difficult in: None Skin Integrity/Comment: dryness Current %PO Good (75-100%) Estimated Nutritional Goals BEE in Kcals: Using Current wt Calories/Kcals/Kg 25-30 Kcals Calculated 8679-9948 Protein: Using Current wt Protein g/k Protein Calculated 64 Fluid: ml 1600-1920ml (1ml/kcal) Nutritional Problem No current Nutrition Prob Problem N/A Malnutrition Alert Is there a minimum of two criteria No selected? Query Text:Check all the applicable criteria. A minimum of two criteria are recommended for diagnosis of either severe or non-severe malnutrition. Malnutrition Related to Morbid Obesity Malnutrition related to morbid obesity No Intervention/Recommendation Comments 1. Continue with PRASANTH CCHO diet as ordered. 2. Monitor PO intake, wt, labs and skin integrity 3. F/U as low risk in 7 days Expected Outcomes/Goals Expected Outcomes/Goals 1. PO intake to meet at least 75% of nutritional needs. 2. Wt stability, skin to remain intact, labs to approach WNL.
[2018-09-11] MEDS: Atorvastatin Calcium 10 MG TAB PO SCH (20:53)
--- NOTE | 2018-09-11 22:59 | Progress Notes ---
DATE: SUBJECTIVE: Chart reviewed and the patient interviewed. Also discussed the patient's condition with the staff and reviewed records and labs. The patient is still anxious and he is still actively responding and seems to be preoccupied. The patient is still confused and needs lots of redirections. The patient also is having difficulty following directions. Otherwise, the patient is compliant with taking his medications with no side effect. ASSESSMENT: The patient is still confused and psychotic. TREATMENT PLAN: Continue to monitor behavior closely. Also, continue Zyprexa, Keppra, and Ativan and continue to follow up. JOB# [id number]
[2018-09-12] MEDS: INSULIN LISPRO SLIDING SCALE 100 UNITS/ML UNIT SUBQ SCH ×4 (06:38→21:05)
[2018-09-12] MEDS: Levothyroxine 0.025 Mg Tab PO SCH (06:38)
[2018-09-12] MEDS: Pantoprazole 40 mg EC Tab PO SCH (09:01)
[2018-09-12] MEDS: Fish Oil 1,000 MG SGL PO SCH (09:02)
[2018-09-12] MEDS: Multivitamin w/ Minerals Tab PO SCH (09:03)
--- NOTE | 2018-09-12 15:20 | Progress Notes ---
DATE: 09/12/2018 SUBJECTIVE: Chart reviewed and the patient interviewed. Also discussed the patient's condition with the staff and reviewed records and labs. The patient is still in angry and in irritable mood. The patient also is still agitated and still needs lots of redirections. She also is still uncooperative with the staff and have difficulty following. Otherwise, the patient is compliant with taking medications with no side effects. ASSESSMENT: The patient is still agitated and needs redirections. TREATMENT PLAN: Continue to monitor behavior and condition closely. Also, continue adjusting psychotropic medications and follow up closely. JOB# [id number]
--- NOTE | 2018-09-12 17:36 | Internal Medicine Prog Note ---
Internal Medicine Subjective - Subjective Service Date: 09/12/18 Patient seen and examined:: without staff (HE FEELS WELL) Patient is:: awake, verbal, in bed, confused Per staff patient has:: no adverse event Internal Medicine Objective - Results Result Diagrams: 09/07/18 20:00 09/07/18 20:00 Recent Labs: Laboratory Last Values WBC 6.0 Th/cmm (4.8-10.8) 09/07/18 20:00 RBC 4.71 Mil/cmm (3.80-5.80) 09/07/18 20:00 Hgb 11.1 gm/dL (12-16) L 09/07/18 20:00 Hct 34.1 % (41.0-60) L 09/07/18 20:00 MCV 72.4 fl (80-99) L 09/07/18 20:00 MCH 23.5 pg (27.0-31.0) L 09/07/18 20:00 MCHC Differential 32.5 pg (28.0-36.0) 09/07/18 20:00 RDW 19.3 % (11.5-20.0) 09/07/18 20:00 Plt Count 317 Th/cmm (150-400) 09/07/18 20:00 MPV 8.4 fl 09/07/18 20:00 Neutrophils % 74.8 % (40.0-80.0) 09/07/18 20:00 Lymphocytes % 14.4 % (20.0-50.0) L 09/07/18 20:00 Monocytes % 9.3 % (2.0-10.0) 09/07/18 20:00 Eosinophils % 1.0 % (0.0-5.0) 09/07/18 20:00 Basophils % 0.5 % (0.0-2.0) 09/07/18 20:00 PT 10.7 SECONDS (9.5-11.5) 09/07/18 20:00 INR 1.03 (0.5-1.4) 09/07/18 20:00 Sodium 138 mEq/L (136-145) 09/07/18 20:00 Potassium 4.0 mEq/L (3.5-5.1) 09/07/18 20:00 Chloride 99 mEq/L (98-107) 09/07/18 20:00 Carbon Dioxide 27.8 mEq/L (21.0-31.0) 09/07/18 20:00 Anion Gap 15.2 (7.0-16.0) 09/07/18 20:00 BUN 17 mg/dL (7-25) 09/07/18 20:00 Creatinine 0.5 mg/dL (0.7-1.3) L 09/07/18 20:00 Est GFR ( Amer) TNP 09/07/18 20:00 Est GFR (Non-Af Amer) TNP 09/07/18 20:00 BUN/Creatinine Ratio 34.0 09/07/18 20:00 Glucose 110 mg/dL (70-105) H 09/07/18 20:00 POC Glucose 81 MG/DL (70 - 105) 09/12/18 06:29 Calcium 9.1 mg/dL (8.6-10.3) 09/07/18 20:00 Total Bilirubin 0.3 mg/dL (0.3-1.0) 09/07/18 20:00 AST 11 U/L (13-39) L 09/07/18 20:00 ALT 11 U/L (7-52) 09/07/18 20:00 Alkaline Phosphatase 46 U/L (34-104) 09/07/18 20:00 Troponin I < 0.01 ng/mL (0.01-0.05) L 09/07/18 20:00 Total Protein 6.0 gm/dL (6.0-8.3) 09/07/18 20:00 Albumin 4.1 gm/dL (4.2-5.5) L 09/07/18 20:00 Globulin 1.9 gm/dL 09/07/18 20:00 Albumin/Globulin Ratio 2.2 (1.0-1.8) H 09/07/18 20:00 Triglycerides 96 mg/dL (<150) 09/07/18 20:00 Cholesterol 103 mg/dL (<200) 09/07/18 20:00 LDL Cholesterol Direct 59 mg/dL (75-193) L 09/07/18 20:00 HDL Cholesterol 38 mg/dL (23-92) 09/07/18 20:00 TSH 2.06 uIU/ml (0.34-5.60) 09/07/18 20:00 Levetiracetam 17.0 ug/mL (10.0-40.0) 09/07/18 20:00 - Physical Exam Vitals and I&O: Vital Signs Temp 96 F 09/12/18 14:00 Pulse 78 09/12/18 14:00 Resp 18 09/12/18 14:00 BP 129/66 09/12/18 14:00 Pulse Ox 95 09/12/18 14:00 Intake & Output 09/11/18 09/12/18 09/12/18 18:59 06:59 18:59 Intake Total 800 Balance 800 Intake: Oral 800 Other: # Voids 3 # Bowel Movements 0 Active Medications: Current Medications Acetaminophen (Tylenol) 650 mg PO Q4H PRN PRN Reason: Pain or Fever >101 Stop: 11/07/18 00:09 Al Hydrox/Mg Hydrox/Simethicone (Maalox) 30 ml PO Q6HR PRN PRN Reason: GI DISTRESS Stop: 11/06/18 22:12 Ascorbic Acid (Vitamin C) 250 mg PO DAILY [facility] Stop: 11/07/18 08:59 Last Admin: 09/12/18 09:03 Dose: 250 mg Atorvastatin Calcium (Lipitor) 5 mg PO HS [facility]; Protocol Stop: 11/07/18 20:59 Last Admin: 09/11/18 20:53 Dose: 5 mg Dextrose (D50w) 50 ml IVP PRN PRN PRN Reason: Blood Glucose less than 70 Stop: 11/07/18 19:01 Dextrose (Glutose 40%) 18.75 gm PO PRN PRN PRN Reason: Blood Glucose less than 70 Stop: 11/07/18 19:01 Docusate Sodium (Colace) 250 mg PO DAILY [facility] Stop: 11/07/18 08:59 Last Admin: 09/12/18 09:04 Dose: 250 mg Fish Oil ([place] 3) 1,000 mg PO DAILY [facility] Stop: 11/07/18 08:59 Last Admin: 09/12/18 09:02 Dose: 1,000 mg Glucagon (Glucagen) 1 mg IM PRN PRN PRN Reason: Blood Glucose less than 70 Stop: 11/07/18 19:01 Insulin Human Lispro (Humalog Insulin Sliding Scale) 0 units SUBQ [facility]; Protocol Stop: 11/07/18 20:59 Last Admin: 09/12/18 16:59 Dose: Not Given Levetiracetam (Keppra) 500 mg PO BID [facility] Stop: 11/07/18 08:59 Last Admin: 09/12/18 17:10 Dose: 500 mg Levothyroxine Sodium (Synthroid) 0.025 mg PO QDAC [facility] Stop: 11/07/18 07:29 Last Admin: 09/12/18 06:38 Dose: 0.025 mg Lorazepam (Ativan) 0.5 mg PO DAILY [facility]; Protocol Stop: 11/07/18 08:59 Last Admin: 09/12/18 09:07 Dose: 0.5 mg Lorazepam (Ativan) 1 mg PO Q4H PRN; Protocol PRN Reason: Agitation Stop: 11/08/18 14:33 Last Admin: 09/11/18 23:44 Dose: 1 mg Magnesium Hydroxide (Milk Of Magnesia) 30 ml PO HS PRN PRN Reason: Constipation Stop: 11/06/18 22:12 Metformin HCl (Glucophage) 1,000 mg PO BIDWM [facility] Stop: 11/07/18 07:59 Last Admin: 09/12/18 17:11 Dose: 1,000 mg Metoprolol Tartrate (Lopressor) 25 mg PO Q12H [facility] Stop: 11/07/18 08:59 Last Admin: 09/12/18 09:02 Dose: 25 mg Olanzapine (Zyprexa) 10 mg PO BID [facility]; Protocol Stop: 11/08/18 16:59 Last Admin: 09/12/18 17:13 Dose: 10 mg Pantoprazole Sodium (Protonix) 40 mg PO DAILY [facility] Stop: 11/07/18 08:59 Last Admin: 09/12/18 09:01 Dose: 40 mg Rivaroxaban (Xarelto) 20 mg PO QPM [facility] Stop: 11/07/18 20:59 Last Admin: 09/12/18 17:12 Dose: 20 mg Zolpidem Tartrate (Ambien) 5 mg PO HS PRN PRN Reason: Insomnia Stop: 11/06/18 22:07 Last Admin: 09/12/18 02:45 Dose: 5 mg General: alert HEENT: NC/AT, PERRLA, EOMI, anicteric sclerae, throat clear Neck: No JVD, No thyromegaly, +2 carotid pulse wo bruit, No LAD Lungs: CTAB Cardiovascular: Normal S1, Normal S2, without murmur Abdomen: soft, non-tender, non-distended Extremities: clear Neurological: no change, alert Internal Medicine Assmt/Plan - Assessment Assessment: 1.DM. 2.HTN. 3.HYPOTHYROIDISM. 4.PSYCHOSIS - Plan Plan: CONTINUE ON CURRENT MEDICATION AND DIET. Nutritional Asmnt/Malnutr-PDOC - Dietary Evaluation Malnutrition Findings (Please click <Entered> for more info): Nutritional Asmnt/Malnutrition Start: 09/11/18 14: 17 Text: Status: Complete Freq: Protocol: Document 09/11/18 14:24 LCAMIEG (Rec: 09/11/18 14:28 [email or web address] [id number]) Nutritional Asmnt/Malnutrition Patient General Information Nutritional Screening Moderate Risk Diagnosis psychosis Pertinent Medical Hx/Surgical Hx HTN, DM, CAD, dyslipidemia, PUD/GERD, thyroid disorder, dementia, deression Subjective Information Pt seen eating lunch in dining room, confused, not able to answer RD questions. Per EMR, PO intake 100%. Current Diet Order/ Nutrition Support PRASANTH CCHO Pertinent Medications vit C, lipitor, colace, omega 3, humalog, synthroid, glucophage, protonix Pertinent Labs 09/10-09/11 POC 87-153 09/07 Cr 0.5, glucose 110, Alb 4.1 Nutritional Hx/Data Height 1.73 m Height (Calculated Centimeters) 172.7 Current Weight (lbs) 63.503 kg Weight (Calculated Kilograms) 63.5 Weight (Calculated Grams) 89456.9 [place] Body Weight 154 Body Mass Index (BMI) 21.2 Weight Status Approriate GI Symptoms GI Symptoms None Last BM 09/10 Difficult in: None Skin Integrity/Comment: dryness Current %PO Good (75-100%) Estimated Nutritional Goals BEE in Kcals: Using Current wt Calories/Kcals/Kg 25-30 Kcals Calculated 4804-4505 Protein: Using Current wt Protein g/k Protein Calculated 64 Fluid: ml 1600-1920ml (1ml/kcal) Nutritional Problem No current Nutrition Prob Problem N/A Malnutrition Alert Is there a minimum of two criteria No selected? Query Text:Check all the applicable criteria. A minimum of two criteria are recommended for diagnosis of either severe or non-severe malnutrition. Malnutrition Related to Morbid Obesity Malnutrition related to morbid obesity No Intervention/Recommendation Comments 1. Continue with PRASANTH CCHO diet as ordered. 2. Monitor PO intake, wt, labs and skin integrity 3. F/U as low risk in 7 days Expected Outcomes/Goals Expected Outcomes/Goals 1. PO intake to meet at least 75% of nutritional needs. 2. Wt stability, skin to remain intact, labs to approach WNL.
[2018-09-12] MEDS: Atorvastatin Calcium 10 MG TAB PO SCH (21:05)
[2018-09-13] MEDS: INSULIN LISPRO SLIDING SCALE 100 UNITS/ML UNIT SUBQ SCH ×4 (06:46→21:11)
[2018-09-13] MEDS: Levothyroxine 0.025 Mg Tab PO SCH (06:48)
[2018-09-13] MEDS: Pantoprazole 40 mg EC Tab PO SCH (08:25)
[2018-09-13] MEDS: Fish Oil 1,000 MG SGL PO SCH (08:25)
[2018-09-13] MEDS: Multivitamin w/ Minerals Tab PO SCH (08:25)
[2018-09-13] MEDS: Atorvastatin Calcium 10 MG TAB PO SCH (21:08)
--- NOTE | 2018-09-13 22:03 | Internal Medicine Prog Note ---
Internal Medicine Subjective - Subjective Service Date: 09/13/18 Patient seen and examined:: without staff Patient is:: awake, verbal, in bed, confused Per staff patient has:: no adverse event Internal Medicine Objective - Results Result Diagrams: 09/07/18 20:00 09/07/18 20:00 Recent Labs: Laboratory Last Values WBC 6.0 Th/cmm (4.8-10.8) 09/07/18 20:00 RBC 4.71 Mil/cmm (3.80-5.80) 09/07/18 20:00 Hgb 11.1 gm/dL (12-16) L 09/07/18 20:00 Hct 34.1 % (41.0-60) L 09/07/18 20:00 MCV 72.4 fl (80-99) L 09/07/18 20:00 MCH 23.5 pg (27.0-31.0) L 09/07/18 20:00 MCHC Differential 32.5 pg (28.0-36.0) 09/07/18 20:00 RDW 19.3 % (11.5-20.0) 09/07/18 20:00 Plt Count 317 Th/cmm (150-400) 09/07/18 20:00 MPV 8.4 fl 09/07/18 20:00 Neutrophils % 74.8 % (40.0-80.0) 09/07/18 20:00 Lymphocytes % 14.4 % (20.0-50.0) L 09/07/18 20:00 Monocytes % 9.3 % (2.0-10.0) 09/07/18 20:00 Eosinophils % 1.0 % (0.0-5.0) 09/07/18 20:00 Basophils % 0.5 % (0.0-2.0) 09/07/18 20:00 PT 10.7 SECONDS (9.5-11.5) 09/07/18 20:00 INR 1.03 (0.5-1.4) 09/07/18 20:00 Sodium 138 mEq/L (136-145) 09/07/18 20:00 Potassium 4.0 mEq/L (3.5-5.1) 09/07/18 20:00 Chloride 99 mEq/L (98-107) 09/07/18 20:00 Carbon Dioxide 27.8 mEq/L (21.0-31.0) 09/07/18 20:00 Anion Gap 15.2 (7.0-16.0) 09/07/18 20:00 BUN 17 mg/dL (7-25) 09/07/18 20:00 Creatinine 0.5 mg/dL (0.7-1.3) L 09/07/18 20:00 Est GFR ( Amer) TNP 09/07/18 20:00 Est GFR (Non-Af Amer) TNP 09/07/18 20:00 BUN/Creatinine Ratio 34.0 09/07/18 20:00 Glucose 110 mg/dL (70-105) H 09/07/18 20:00 POC Glucose 99 MG/DL (70 - 105) 09/13/18 20:55 Calcium 9.1 mg/dL (8.6-10.3) 09/07/18 20:00 Total Bilirubin 0.3 mg/dL (0.3-1.0) 09/07/18 20:00 AST 11 U/L (13-39) L 09/07/18 20:00 ALT 11 U/L (7-52) 09/07/18 20:00 Alkaline Phosphatase 46 U/L (34-104) 09/07/18 20:00 Troponin I < 0.01 ng/mL (0.01-0.05) L 09/07/18 20:00 Total Protein 6.0 gm/dL (6.0-8.3) 09/07/18 20:00 Albumin 4.1 gm/dL (4.2-5.5) L 09/07/18 20:00 Globulin 1.9 gm/dL 09/07/18 20:00 Albumin/Globulin Ratio 2.2 (1.0-1.8) H 09/07/18 20:00 Triglycerides 96 mg/dL (<150) 09/07/18 20:00 Cholesterol 103 mg/dL (<200) 09/07/18 20:00 LDL Cholesterol Direct 59 mg/dL (75-193) L 09/07/18 20:00 HDL Cholesterol 38 mg/dL (23-92) 09/07/18 20:00 TSH 2.06 uIU/ml (0.34-5.60) 09/07/18 20:00 Levetiracetam 17.0 ug/mL (10.0-40.0) 09/07/18 20:00 - Physical Exam Vitals and I&O: Vital Signs Temp 98 F 09/13/18 20:17 Pulse 88 09/13/18 21:10 Resp 20 09/13/18 20:17 BP 127/64 09/13/18 21:10 Pulse Ox 97 09/13/18 20:17 Intake & Output 09/13/18 09/13/18 09/14/18 06:59 18:59 06:59 Intake Total 480 1200 240 Balance 480 1200 240 Intake: Oral 480 1200 240 Other: # Voids 1 2 # Bowel Movements 1 Active Medications: Current Medications Acetaminophen (Tylenol) 650 mg PO Q4H PRN PRN Reason: Pain or Fever >101 Stop: 11/07/18 00:09 Al Hydrox/Mg Hydrox/Simethicone (Maalox) 30 ml PO Q6HR PRN PRN Reason: GI DISTRESS Stop: 11/06/18 22:12 Ascorbic Acid (Vitamin C) 250 mg PO DAILY [facility] Stop: 11/07/18 08:59 Last Admin: 09/13/18 08:25 Dose: 250 mg Atorvastatin Calcium (Lipitor) 5 mg PO HS [facility]; Protocol Stop: 11/07/18 20:59 Last Admin: 09/13/18 21:08 Dose: 5 mg Dextrose (D50w) 50 ml IVP PRN PRN PRN Reason: Blood Glucose less than 70 Stop: 11/07/18 19:01 Dextrose (Glutose 40%) 18.75 gm PO PRN PRN PRN Reason: Blood Glucose less than 70 Stop: 11/07/18 19:01 Docusate Sodium (Colace) 250 mg PO DAILY [facility] Stop: 11/07/18 08:59 Last Admin: 09/13/18 08:25 Dose: 250 mg Fish Oil ([place] 3) 1,000 mg PO DAILY [facility] Stop: 11/07/18 08:59 Last Admin: 09/13/18 08:25 Dose: 1,000 mg Glucagon (Glucagen) 1 mg IM PRN PRN PRN Reason: Blood Glucose less than 70 Stop: 11/07/18 19:01 Insulin Human Lispro (Humalog Insulin Sliding Scale) 0 units SUBQ [facility]; Protocol Stop: 11/07/18 20:59 Last Admin: 09/13/18 21:11 Dose: Not Given Levetiracetam (Keppra) 500 mg PO BID [facility] Stop: 11/07/18 08:59 Last Admin: 09/13/18 16:54 Dose: 500 mg Levothyroxine Sodium (Synthroid) 0.025 mg PO QDAC [facility] Stop: 11/07/18 07:29 Last Admin: 09/13/18 06:48 Dose: 0.025 mg Lorazepam (Ativan) 0.5 mg PO DAILY [facility]; Protocol Stop: 11/07/18 08:59 Last Admin: 09/13/18 08:24 Dose: 0.5 mg Lorazepam (Ativan) 1 mg PO Q4H PRN; Protocol PRN Reason: Agitation Stop: 11/08/18 14:33 Last Admin: 09/12/18 21:07 Dose: 1 mg Magnesium Hydroxide (Milk Of Magnesia) 30 ml PO HS PRN PRN Reason: Constipation Stop: 11/06/18 22:12 Metformin HCl (Glucophage) 1,000 mg PO BIDWM [facility] Stop: 11/07/18 07:59 Last Admin: 09/13/18 16:59 Dose: 1,000 mg Metoprolol Tartrate (Lopressor) 25 mg PO Q12H [facility] Stop: 11/07/18 08:59 Last Admin: 09/13/18 21:10 Dose: Not Given Olanzapine (Zyprexa) 10 mg PO BID [facility]; Protocol Stop: 11/08/18 16:59 Last Admin: 09/13/18 16:54 Dose: 10 mg Pantoprazole Sodium (Protonix) 40 mg PO DAILY [facility] Stop: 11/07/18 08:59 Last Admin: 09/13/18 08:25 Dose: 40 mg Rivaroxaban (Xarelto) 20 mg PO QPM [facility] Stop: 11/07/18 20:59 Last Admin: 09/13/18 16:54 Dose: 20 mg Zolpidem Tartrate (Ambien) 5 mg PO HS PRN PRN Reason: Insomnia Stop: 11/06/18 22:07 Last Admin: 09/13/18 21:08 Dose: 5 mg General: alert HEENT: NC/AT, PERRLA, EOMI, anicteric sclerae, throat clear Neck: No JVD, No thyromegaly, +2 carotid pulse wo bruit, No LAD Lungs: CTAB Cardiovascular: Normal S1, Normal S2, without murmur Abdomen: soft, non-tender, non-distended Extremities: clear Neurological: no change, alert Internal Medicine Assmt/Plan - Assessment Assessment: 1.DM. 2.HTN. 3.HYPOTHYROIDISM. 4.PSYCHOSIS - Plan Plan: CONTINUE ON CURRENT MEDICATION AND DIET. Nutritional Asmnt/Malnutr-PDOC - Dietary Evaluation Malnutrition Findings (Please click <Entered> for more info): Nutritional Asmnt/Malnutrition Start: 09/11/18 14: 17 Text: Status: Complete Freq: Protocol: Document 09/11/18 14:24 LCHENG (Rec: 09/11/18 14:28 [email or web address] [email or web address]) Nutritional Asmnt/Malnutrition Patient General Information Nutritional Screening Moderate Risk Diagnosis psychosis Pertinent Medical Hx/Surgical Hx HTN, DM, CAD, dyslipidemia, PUD/GERD, thyroid disorder, dementia, deression Subjective Information Pt seen eating lunch in dining room, confused, not able to answer RD questions. Per EMR, PO intake 100%. Current Diet Order/ Nutrition Support PRASANTH CCHO Pertinent Medications vit C, lipitor, colace, omega 3, humalog, synthroid, glucophage, protonix Pertinent Labs 09/10-09/11 POC 87-153 09/07 Cr 0.5, glucose 110, Alb 4.1 Nutritional Hx/Data Height 1.73 m Height (Calculated Centimeters) 172.7 Current Weight (lbs) 63.503 kg Weight (Calculated Kilograms) 63.5 Weight (Calculated Grams) 56136.9 [place] Body Weight 154 Body Mass Index (BMI) 21.2 Weight Status Approriate GI Symptoms GI Symptoms None Last BM 09/10 Difficult in: None Skin Integrity/Comment: dryness Current %PO Good (75-100%) Estimated Nutritional Goals BEE in Kcals: Using Current wt Calories/Kcals/Kg 25-30 Kcals Calculated 8352-1595 Protein: Using Current wt Protein g/k Protein Calculated 64 Fluid: ml 1600-1920ml (1ml/kcal) Nutritional Problem No current Nutrition Prob Problem N/A Malnutrition Alert Is there a minimum of two criteria No selected? Query Text:Check all the applicable criteria. A minimum of two criteria are recommended for diagnosis of either severe or non-severe malnutrition. Malnutrition Related to Morbid Obesity Malnutrition related to morbid obesity No Intervention/Recommendation Comments 1. Continue with PRASANTH CCHO diet as ordered. 2. Monitor PO intake, wt, labs and skin integrity 3. F/U as low risk in 7 days Expected Outcomes/Goals Expected Outcomes/Goals 1. PO intake to meet at least 75% of nutritional needs. 2. Wt stability, skin to remain intact, labs to approach WNL.
[2018-09-14] MEDS: INSULIN LISPRO SLIDING SCALE 100 UNITS/ML UNIT SUBQ SCH ×4 (06:50→20:29)
[2018-09-14] MEDS: Levothyroxine 0.025 Mg Tab PO SCH (06:52)
[2018-09-14] MEDS: Fish Oil 1,000 MG SGL PO SCH (08:45)
[2018-09-14] MEDS: Pantoprazole 40 mg EC Tab PO SCH (08:46)
[2018-09-14] MEDS: Multivitamin w/ Minerals Tab PO SCH (08:46)
--- NOTE | 2018-09-14 19:59 | Progress Notes ---
DATE: SUBJECTIVE: The patient was seen, chart reviewed, and discussed with staff. The patient continues to be irritable, requiring numerous redirections, is disoriented to time and place. States that he is at his friend's house. Otherwise, he has displayed good sleep, appetite, and compliant with medications. PLAN: The patient is still irritable and unpredictable, so that he will require inpatient care center treatment. We will monitor patient on a daily basis for response to medications and titrate meds as needed. JOB# [id number]
[2018-09-14] MEDS: Atorvastatin Calcium 10 MG TAB PO SCH (20:28)
--- NOTE | 2018-09-14 21:00 | Internal Medicine Prog Note ---
Internal Medicine Subjective - Subjective Service Date: 09/14/18 Patient seen and examined:: with staff Patient is:: awake, verbal, in bed, confused Per staff patient has:: no adverse event Internal Medicine Objective - Results Result Diagrams: 09/07/18 20:00 09/07/18 20:00 Recent Labs: Laboratory Last Values WBC 6.0 Th/cmm (4.8-10.8) 09/07/18 20:00 RBC 4.71 Mil/cmm (3.80-5.80) 09/07/18 20:00 Hgb 11.1 gm/dL (12-16) L 09/07/18 20:00 Hct 34.1 % (41.0-60) L 09/07/18 20:00 MCV 72.4 fl (80-99) L 09/07/18 20:00 MCH 23.5 pg (27.0-31.0) L 09/07/18 20:00 MCHC Differential 32.5 pg (28.0-36.0) 09/07/18 20:00 RDW 19.3 % (11.5-20.0) 09/07/18 20:00 Plt Count 317 Th/cmm (150-400) 09/07/18 20:00 MPV 8.4 fl 09/07/18 20:00 Neutrophils % 74.8 % (40.0-80.0) 09/07/18 20:00 Lymphocytes % 14.4 % (20.0-50.0) L 09/07/18 20:00 Monocytes % 9.3 % (2.0-10.0) 09/07/18 20:00 Eosinophils % 1.0 % (0.0-5.0) 09/07/18 20:00 Basophils % 0.5 % (0.0-2.0) 09/07/18 20:00 PT 10.7 SECONDS (9.5-11.5) 09/07/18 20:00 INR 1.03 (0.5-1.4) 09/07/18 20:00 Sodium 138 mEq/L (136-145) 09/07/18 20:00 Potassium 4.0 mEq/L (3.5-5.1) 09/07/18 20:00 Chloride 99 mEq/L (98-107) 09/07/18 20:00 Carbon Dioxide 27.8 mEq/L (21.0-31.0) 09/07/18 20:00 Anion Gap 15.2 (7.0-16.0) 09/07/18 20:00 BUN 17 mg/dL (7-25) 09/07/18 20:00 Creatinine 0.5 mg/dL (0.7-1.3) L 09/07/18 20:00 Est GFR ( Amer) TNP 09/07/18 20:00 Est GFR (Non-Af Amer) TNP 09/07/18 20:00 BUN/Creatinine Ratio 34.0 09/07/18 20:00 Glucose 110 mg/dL (70-105) H 09/07/18 20:00 POC Glucose 107 MG/DL (70 - 105) H 09/14/18 20:01 Calcium 9.1 mg/dL (8.6-10.3) 09/07/18 20:00 Total Bilirubin 0.3 mg/dL (0.3-1.0) 09/07/18 20:00 AST 11 U/L (13-39) L 09/07/18 20:00 ALT 11 U/L (7-52) 09/07/18 20:00 Alkaline Phosphatase 46 U/L (34-104) 09/07/18 20:00 Troponin I < 0.01 ng/mL (0.01-0.05) L 09/07/18 20:00 Total Protein 6.0 gm/dL (6.0-8.3) 09/07/18 20:00 Albumin 4.1 gm/dL (4.2-5.5) L 09/07/18 20:00 Globulin 1.9 gm/dL 09/07/18 20: Albumin/Globulin Ratio 2.2 (1.0-1.8) H 09/07/18 20:00 Triglycerides 96 mg/dL (<150) 09/07/18 20:00 Cholesterol 103 mg/dL (<200) 09/07/18 20:00 LDL Cholesterol Direct 59 mg/dL (75-193) L 09/07/18 20:00 HDL Cholesterol 38 mg/dL (23-92) 09/07/18 20:00 TSH 2.06 uIU/ml (0.34-5.60) 09/07/18 20:00 Levetiracetam 17.0 ug/mL (10.0-40.0) 09/07/18 20:00 - Physical Exam Vitals and I&O: Vital Signs Temp 98.7 F 09/14/18 20:00 Pulse 85 09/14/18 20:28 Resp 19 09/14/18 20:00 BP 134/85 09/14/18 20:28 Pulse Ox 98 09/14/18 20:00 Intake & Output 09/14/18 09/14/18 09/15/18 06:59 18:59 06:59 Intake Total 240 960 Balance 240 960 Intake: Oral 240 960 Other: # Voids 3 4 # Bowel Movements 0 1 Active Medications: Current Medications Acetaminophen (Tylenol) 650 mg PO Q4H PRN PRN Reason: Pain or Fever >101 Stop: 11/07/18 00:09 Al Hydrox/Mg Hydrox/Simethicone (Maalox) 30 ml PO Q6HR PRN PRN Reason: GI DISTRESS Stop: 11/06/18 22:12 Ascorbic Acid (Vitamin C) 250 mg PO DAILY [facility] Stop: 11/07/18 08:59 Last Admin: 09/14/18 08:46 Dose: 250 mg Atorvastatin Calcium (Lipitor) 5 mg PO HS [facility]; Protocol Stop: 11/07/18 20:59 Last Admin: 09/14/18 20:28 Dose: 5 mg Dextrose (D50w) 50 ml IVP PRN PRN PRN Reason: Blood Glucose less than 70 Stop: 11/07/18 19:01 Dextrose (Glutose 40%) 18.75 gm PO PRN PRN PRN Reason: Blood Glucose less than 70 Stop: 11/07/18 19:01 Docusate Sodium (Colace) 250 mg PO DAILY [facility] Stop: 11/07/18 08:59 Last Admin: 09/14/18 08:46 Dose: 250 mg Fish Oil ([place] 3) 1,000 mg PO DAILY [facility] Stop: 11/07/18 08:59 Last Admin: 09/14/18 08:45 Dose: 1,000 mg Glucagon (Glucagen) 1 mg IM PRN PRN PRN Reason: Blood Glucose less than 70 Stop: 11/07/18 19:01 Insulin Human Lispro (Humalog Insulin Sliding Scale) 0 units SUBQ [facility]; Protocol Stop: 11/07/18 20:59 Last Admin: 09/14/18 20:29 Dose: Not Given Levetiracetam (Keppra) 500 mg PO BID [facility] Stop: 11/07/18 08:59 Last Admin: 09/14/18 16:58 Dose: 500 mg Levothyroxine Sodium (Synthroid) 0.025 mg PO QDAC [facility] Stop: 11/07/18 07:29 Last Admin: 09/14/18 06:52 Dose: 0.025 mg Lorazepam (Ativan) 0.5 mg PO DAILY [facility]; Protocol Stop: 11/07/18 08:59 Last Admin: 09/14/18 08:47 Dose: 0.5 mg Lorazepam (Ativan) 1 mg PO Q4H PRN; Protocol PRN Reason: Agitation Stop: 11/08/18 14:33 Last Admin: 09/14/18 20:28 Dose: 1 mg Magnesium Hydroxide (Milk Of Magnesia) 30 ml PO HS PRN PRN Reason: Constipation Stop: 11/06/18 22:12 Metformin HCl (Glucophage) 1,000 mg PO BIDWM [facility] Stop: 11/07/18 07:59 Last Admin: 09/14/18 18:09 Dose: 1,000 mg Metoprolol Tartrate (Lopressor) 25 mg PO Q12H [facility] Stop: 11/07/18 08:59 Last Admin: 09/14/18 20:28 Dose: 25 mg Olanzapine (Zyprexa) 10 mg PO BID [facility]; Protocol Stop: 11/08/18 16:59 Last Admin: 09/14/18 16:58 Dose: 10 mg Pantoprazole Sodium (Protonix) 40 mg PO DAILY [facility] Stop: 11/07/18 08:59 Last Admin: 09/14/18 08:46 Dose: 40 mg Rivaroxaban (Xarelto) 20 mg PO QPM [facility] Stop: 11/07/18 20:59 Last Admin: 09/14/18 16:58 Dose: 20 mg Zolpidem Tartrate (Ambien) 5 mg PO HS PRN PRN Reason: Insomnia Stop: 11/06/18 22:07 Last Admin: 09/14/18 20:28 Dose: 5 mg General: alert HEENT: NC/AT, PERRLA, EOMI, anicteric sclerae, throat clear Neck: No JVD, No thyromegaly, +2 carotid pulse wo bruit, No LAD Lungs: CTAB Cardiovascular: Normal S1, Normal S2, without murmur Abdomen: soft, non-tender, non-distended Extremities: clear Neurological: no change, alert Internal Medicine Assmt/Plan - Assessment Assessment: 1.DM. 2.HTN. 3.HYPOTHYROIDISM. 4.PSYCHOSIS - Plan Plan: CONTINUE ON CURRENT MEDICATION AND DIET. Nutritional Asmnt/Malnutr-PDOC - Dietary Evaluation Malnutrition Findings (Please click <Entered> for more info): Nutritional Asmnt/Malnutrition Start: 09/11/18 14: 17 Text: Status: Complete Freq: Protocol: Document 09/11/18 14:24 LCAMIEG (Rec: 09/11/18 14:28 TAMMY [email or web address]) Nutritional Asmnt/Malnutrition Patient General Information Nutritional Screening Moderate Risk Diagnosis psychosis Pertinent Medical Hx/Surgical Hx HTN, DM, CAD, dyslipidemia, PUD/GERD, thyroid disorder, dementia, deression Subjective Information Pt seen eating lunch in dining room, confused, not able to answer RD questions. Per EMR, PO intake 100%. Current Diet Order/ Nutrition Support PRASANTH CCHO Pertinent Medications vit C, lipitor, colace, omega 3, humalog, synthroid, glucophage, protonix Pertinent Labs 09/10-09/11 POC 87-153 09/07 Cr 0.5, glucose 110, Alb 4.1 Nutritional Hx/Data Height 1.73 m Height (Calculated Centimeters) 172.7 Current Weight (lbs) 63.503 kg Weight (Calculated Kilograms) 63.5 Weight (Calculated Grams) 90000.9 [place] Body Weight 154 Body Mass Index (BMI) 21.2 Weight Status Approriate GI Symptoms GI Symptoms None Last BM 09/10 Difficult in: None Skin Integrity/Comment: dryness Current %PO Good (75-100%) Estimated Nutritional Goals BEE in Kcals: Using Current wt Calories/Kcals/Kg 25-30 Kcals Calculated 3129-0247 Protein: Using Current wt Protein g/k Protein Calculated 64 Fluid: ml 1600-1920ml (1ml/kcal) Nutritional Problem No current Nutrition Prob Problem N/A Malnutrition Alert Is there a minimum of two criteria No selected? Query Text:Check all the applicable criteria. A minimum of two criteria are recommended for diagnosis of either severe or non-severe malnutrition. Malnutrition Related to Morbid Obesity Malnutrition related to morbid obesity No Intervention/Recommendation Comments 1. Continue with PRASANTH CCHO diet as ordered. 2. Monitor PO intake, wt, labs and skin integrity 3. F/U as low risk in 7 days Expected Outcomes/Goals Expected Outcomes/Goals 1. PO intake to meet at least 75% of nutritional needs. 2. Wt stability, skin to remain intact, labs to approach WNL.
[2018-09-15] MEDS: Levothyroxine 0.025 Mg Tab PO SCH (07:02)
[2018-09-15] MEDS: INSULIN LISPRO SLIDING SCALE 100 UNITS/ML UNIT SUBQ SCH ×4 (07:02→20:14)
[2018-09-15] MEDS: Pantoprazole 40 mg EC Tab PO SCH (09:57)
[2018-09-15] MEDS: Fish Oil 1,000 MG SGL PO SCH (09:58)
[2018-09-15] MEDS: Multivitamin w/ Minerals Tab PO SCH (09:59)
--- NOTE | 2018-09-15 20:03 | Internal Medicine Prog Note ---
Internal Medicine Subjective - Subjective Service Date: 09/15/18 Patient seen and examined:: with staff Patient is:: awake, verbal, in bed, confused Per staff patient has:: no adverse event Internal Medicine Objective - Results Result Diagrams: 09/07/18 20:00 09/07/18 20:00 Recent Labs: Laboratory Last Values WBC 6.0 Th/cmm (4.8-10.8) 09/07/18 20:00 RBC 4.71 Mil/cmm (3.80-5.80) 09/07/18 20:00 Hgb 11.1 gm/dL (12-16) L 09/07/18 20:00 Hct 34.1 % (41.0-60) L 09/07/18 20:00 MCV 72.4 fl (80-99) L 09/07/18 20:00 MCH 23.5 pg (27.0-31.0) L 09/07/18 20:00 MCHC Differential 32.5 pg (28.0-36.0) 09/07/18 20:00 RDW 19.3 % (11.5-20.0) 09/07/18 20:00 Plt Count 317 Th/cmm (150-400) 09/07/18 20:00 MPV 8.4 fl 09/07/18 20:00 Neutrophils % 74.8 % (40.0-80.0) 09/07/18 20:00 Lymphocytes % 14.4 % (20.0-50.0) L 09/07/18 20:00 Monocytes % 9.3 % (2.0-10.0) 09/07/18 20:00 Eosinophils % 1.0 % (0.0-5.0) 09/07/18 20:00 Basophils % 0.5 % (0.0-2.0) 09/07/18 20:00 PT 10.7 SECONDS (9.5-11.5) 09/07/18 20:00 INR 1.03 (0.5-1.4) 09/07/18 20:00 Sodium 138 mEq/L (136-145) 09/07/18 20:00 Potassium 4.0 mEq/L (3.5-5.1) 09/07/18 20:00 Chloride 99 mEq/L (98-107) 09/07/18 20:00 Carbon Dioxide 27.8 mEq/L (21.0-31.0) 09/07/18 20:00 Anion Gap 15.2 (7.0-16.0) 09/07/18 20:00 BUN 17 mg/dL (7-25) 09/07/18 20:00 Creatinine 0.5 mg/dL (0.7-1.3) L 09/07/18 20:00 Est GFR ( Amer) TNP 09/07/18 20:00 Est GFR (Non-Af Amer) TNP 09/07/18 20:00 BUN/Creatinine Ratio 34.0 09/07/18 20:00 Glucose 110 mg/dL (70-105) H 09/07/18 20:00 POC Glucose 86 MG/DL (70 - 105) 09/15/18 11:24 Calcium 9.1 mg/dL (8.6-10.3) 09/07/18 20:00 Total Bilirubin 0.3 mg/dL (0.3-1.0) 09/07/18 20:00 AST 11 U/L (13-39) L 09/07/18 20:00 ALT 11 U/L (7-52) 09/07/18 20:00 Alkaline Phosphatase 46 U/L (34-104) 09/07/18 20:00 Troponin I < 0.01 ng/mL (0.01-0.05) L 09/07/18 20:00 Total Protein 6.0 gm/dL (6.0-8.3) 09/07/18 20:00 Albumin 4.1 gm/dL (4.2-5.5) L 09/07/18 20:00 Globulin 1.9 gm/dL 09/07/18 20:00 Albumin/Globulin Ratio 2.2 (1.0-1.8) H 09/07/18 20:00 Triglycerides 96 mg/dL (<150) 09/07/18 20:00 Cholesterol 103 mg/dL (<200) 09/07/18 20:00 LDL Cholesterol Direct 59 mg/dL (75-193) L 09/07/18 20:00 HDL Cholesterol 38 mg/dL (23-92) 09/07/18 20:00 TSH 2.06 uIU/ml (0.34-5.60) 09/07/18 20:00 Levetiracetam 17.0 ug/mL (10.0-40.0) 09/07/18 20:00 - Physical Exam Vitals and I&O: Vital Signs Temp 98.1 F 09/15/18 14:00 Pulse 71 09/15/18 14:00 Resp 18 09/15/18 14:00 BP 142/88 09/15/18 14:00 Pulse Ox 97 09/15/18 14:00 Intake & Output 09/15/18 09/15/18 09/16/18 06:59 18:59 06:59 Intake Total 120 Balance 120 Intake: Oral 120 Other: # Voids 3 Active Medications: Current Medications Acetaminophen (Tylenol) 650 mg PO Q4H PRN PRN Reason: Pain or Fever >101 Stop: 11/07/18 00:09 Al Hydrox/Mg Hydrox/Simethicone (Maalox) 30 ml PO Q6HR PRN PRN Reason: GI DISTRESS Stop: 11/06/18 22:12 Ascorbic Acid (Vitamin C) 250 mg PO DAILY [facility] Stop: 11/07/18 08:59 Last Admin: 09/15/18 09:57 Dose: 250 mg Atorvastatin Calcium (Lipitor) 5 mg PO HS [facility]; Protocol Stop: 11/07/18 20:59 Last Admin: 09/14/18 20:28 Dose: 5 mg Dextrose (D50w) 50 ml IVP PRN PRN PRN Reason: Blood Glucose less than 70 Stop: 11/07/18 19:01 Dextrose (Glutose 40%) 18.75 gm PO PRN PRN PRN Reason: Blood Glucose less than 70 Stop: 11/07/18 19:01 Docusate Sodium (Colace) 250 mg PO DAILY [facility] Stop: 11/07/18 08:59 Last Admin: 09/15/18 09:58 Dose: 250 mg Fish Oil ([place] 3) 1,000 mg PO DAILY [facility] Stop: 11/07/18 08:59 Last Admin: 09/15/18 09:58 Dose: 1,000 mg Glucagon (Glucagen) 1 mg IM PRN PRN PRN Reason: Blood Glucose less than 70 Stop: 11/07/18 19:01 Insulin Human Lispro (Humalog Insulin Sliding Scale) 0 units SUBQ [facility]; Protocol Stop: 04/18/19 20:59 Last Admin: 09/15/18 17:00 Dose: Not Given Levetiracetam (Keppra) 500 mg PO BID [facility] Stop: 11/07/18 08:59 Last Admin: 09/15/18 17:00 Dose: 500 mg Levothyroxine Sodium (Synthroid) 0.025 mg PO QDAC [facility] Stop: 11/07/18 07:29 Last Admin: 09/15/18 07:02 Dose: 0.025 mg Lorazepam (Ativan) 0.5 mg PO DAILY [facility]; Protocol Stop: 11/07/18 08:59 Last Admin: 09/15/18 09:58 Dose: 0.5 mg Lorazepam (Ativan) 1 mg PO Q4H PRN; Protocol PRN Reason: Agitation Stop: 11/08/18 14:33 Last Admin: 09/15/18 13:04 Dose: 1 mg Magnesium Hydroxide (Milk Of Magnesia) 30 ml PO HS PRN PRN Reason: Constipation Stop: 11/06/18 22:12 Metformin HCl (Glucophage) 1,000 mg PO BIDWM [facility] Stop: 11/07/18 07:59 Last Admin: 09/15/18 17:00 Dose: 1,000 mg Metoprolol Tartrate (Lopressor) 25 mg PO Q12H [facility] Stop: 11/07/18 08:59 Last Admin: 09/15/18 09:59 Dose: Not Given Olanzapine (Zyprexa) 10 mg PO BID [facility]; Protocol Stop: 11/08/18 16:59 Last Admin: 09/15/18 17:00 Dose: 10 mg Pantoprazole Sodium (Protonix) 40 mg PO DAILY SANDRA Stop: 11/07/18 08:59 Last Admin: 09/15/18 09:57 Dose: 40 mg Rivaroxaban (Xarelto) 20 mg PO QPM SANDRA Stop: 11/07/18 20:59 Last Admin: 09/15/18 17:00 Dose: 20 mg General: alert HEENT: NC/AT, PERRLA, EOMI, anicteric sclerae, throat clear Neck: No JVD, No thyromegaly, +2 carotid pulse wo bruit, No LAD Lungs: CTAB Cardiovascular: Normal S1, Normal S2, without murmur Abdomen: soft, non-tender, non-distended Extremities: clear Neurological: no change, alert Internal Medicine Assmt/Plan - Assessment Assessment: 1.DM. 2.HTN. 3.HYPOTHYROIDISM. 4.PSYCHOSIS - Plan Plan: CONTINUE ON CURRENT MEDICATION AND DIET. Nutritional Asmnt/Malnutr-PDOC - Dietary Evaluation Malnutrition Findings (Please click <Entered> for more info): Nutritional Asmnt/Malnutrition Start: 09/11/18 14: 17 Text: Status: Complete Freq: Protocol: Document 09/11/18 14:24 [email or web address] (Rec: 09/11/18 14:28 LCHENG [email or web address]) Nutritional Asmnt/Malnutrition Patient General Information Nutritional Screening Moderate Risk Diagnosis psychosis Pertinent Medical Hx/Surgical Hx HTN, DM, CAD, dyslipidemia, PUD/GERD, thyroid disorder, dementia, deression Subjective Information Pt seen eating lunch in dining room, confused, not able to answer RD questions. Per EMR, PO intake 100%. Current Diet Order/ Nutrition Support PRASANTH CCHO Pertinent Medications vit C, lipitor, colace, omega 3, humalog, synthroid, glucophage, protonix Pertinent Labs 09/10-09/11 POC 87-153 09/07 Cr 0.5, glucose 110, Alb 4.1 Nutritional Hx/Data Height 1.73 m Height (Calculated Centimeters) 172.7 Current Weight (lbs) 63.503 kg Weight (Calculated Kilograms) 63.5 Weight (Calculated Grams) 74919.9 [place] Body Weight 154 Body Mass Index (BMI) 21.2 Weight Status Approriate GI Symptoms GI Symptoms None Last BM 09/10 Difficult in: None Skin Integrity/Comment: dryness Current %PO Good (75-100%) Estimated Nutritional Goals BEE in Kcals: Using Current wt Calories/Kcals/Kg 25-30 Kcals Calculated 9811-3023 Protein: Using Current wt Protein g/k Protein Calculated 64 Fluid: ml 1600-1920ml (1ml/kcal) Nutritional Problem No current Nutrition Prob Problem N/A Malnutrition Alert Is there a minimum of two criteria No selected? Query Text:Check all the applicable criteria. A minimum of two criteria are recommended for diagnosis of either severe or non-severe malnutrition. Malnutrition Related to Morbid Obesity Malnutrition related to morbid obesity No Intervention/Recommendation Comments 1. Continue with PRASANTH CCHO diet as ordered. 2. Monitor PO intake, wt, labs and skin integrity 3. F/U as low risk in 7 days Expected Outcomes/Goals Expected Outcomes/Goals 1. PO intake to meet at least 75% of nutritional needs. 2. Wt stability, skin to remain intact, labs to approach WNL.
[2018-09-15] MEDS: Atorvastatin Calcium 10 MG TAB PO SCH (20:14)
--- NOTE | 2018-09-16 03:01 | Progress Notes ---
DATE: SUBJECTIVE: The patient was seen, chart reviewed, and findings were discussed with staff. The patient continues to be intrusive, loud, disoriented, and confused, but currently resting comfortably in bed. The patient has been compliant with medications denying any undue side effects. PLAN: The patient continues to be irritable and disoriented, so that he will require inpatient care center and treatment. We will monitor patient on a daily basis for response to medications and titrate medications as needed. [facility]# [id number]
[2018-09-16] MEDS: INSULIN LISPRO SLIDING SCALE 100 UNITS/ML UNIT SUBQ SCH ×4 (06:45→20:39)
[2018-09-16] MEDS: Levothyroxine 0.025 Mg Tab PO SCH (06:46)
[2018-09-16] MEDS: Fish Oil 1,000 MG SGL PO SCH (08:05)
[2018-09-16] MEDS: Multivitamin w/ Minerals Tab PO SCH (08:19)
[2018-09-16] MEDS: Pantoprazole 40 mg EC Tab PO SCH (08:19)
[2018-09-16] MEDS: Atorvastatin Calcium 10 MG TAB PO SCH (20:39)
--- NOTE | 2018-09-16 20:59 | Internal Medicine Prog Note ---
Internal Medicine Subjective - Subjective Service Date: 09/16/18 Patient seen and examined:: with staff (SHE FEELS BETTER,NO SOB.) Patient is:: awake, verbal, in bed, confused Per staff patient has:: no adverse event Internal Medicine Objective - Results Result Diagrams: 09/07/18 20:00 09/07/18 20:00 Recent Labs: Laboratory Last Values WBC 6.0 Th/cmm (4.8-10.8) 09/07/18 20:00 RBC 4.71 Mil/cmm (3.80-5.80) 09/07/18 20:00 Hgb 11.1 gm/dL (12-16) L 09/07/18 20:00 Hct 34.1 % (41.0-60) L 09/07/18 20:00 MCV 72.4 fl (80-99) L 09/07/18 20:00 MCH 23.5 pg (27.0-31.0) L 09/07/18 20:00 MCHC Differential 32.5 pg (28.0-36.0) 09/07/18 20:00 RDW 19.3 % (11.5-20.0) 09/07/18 20:00 Plt Count 317 Th/cmm (150-400) 09/07/18 20:00 MPV 8.4 fl 09/07/18 20:00 Neutrophils % 74.8 % (40.0-80.0) 09/07/18 20:00 Lymphocytes % 14.4 % (20.0-50.0) L 09/07/18 20:00 Monocytes % 9.3 % (2.0-10.0) 09/07/18 20:00 Eosinophils % 1.0 % (0.0-5.0) 09/07/18 20:00 Basophils % 0.5 % (0.0-2.0) 09/07/18 20:00 PT 10.7 SECONDS (9.5-11.5) 09/07/18 20:00 INR 1.03 (0.5-1.4) 09/07/18 20:00 Sodium 138 mEq/L (136-145) 09/07/18 20:00 Potassium 4.0 mEq/L (3.5-5.1) 09/07/18 20:00 Chloride 99 mEq/L (98-107) 09/07/18 20:00 Carbon Dioxide 27.8 mEq/L (21.0-31.0) 09/07/18 20:00 Anion Gap 15.2 (7.0-16.0) 09/07/18 20:00 BUN 17 mg/dL (7-25) 09/07/18 20:00 Creatinine 0.5 mg/dL (0.7-1.3) L 09/07/18 20:00 Est GFR ( Amer) TNP 09/07/18 20:00 Est GFR (Non-Af Amer) TNP 09/07/18 20:00 BUN/Creatinine Ratio 34.0 09/07/18 20:00 Glucose 110 mg/dL (70-105) H 09/07/18 20:00 POC Glucose 127 MG/DL (70 - 105) H 09/16/18 20:16 Calcium 9.1 mg/dL (8.6-10.3) 09/07/18 20:00 Total Bilirubin 0.3 mg/dL (0.3-1.0) 09/07/18 20:00 AST 11 U/L (13-39) L 09/07/18 20:00 ALT 11 U/L (7-52) 09/07/18 20:00 Alkaline Phosphatase 46 U/L (34-104) 09/07/18 20:00 Troponin I < 0.01 ng/mL (0.01-0.05) L 09/07/18 20:00 Total Protein 6.0 gm/dL (6.0-8.3) 09/07/18 20:00 Albumin 4.1 gm/dL (4.2-5.5) L 09/07/18 20:00 Globulin 1.9 gm/dL 09/07/18 20:00 Albumin/Globulin Ratio 2.2 (1.0-1.8) H 09/07/18 20:00 Triglycerides 96 mg/dL (<150) 09/07/18 20:00 Cholesterol 103 mg/dL (<200) 09/07/18 20:00 LDL Cholesterol Direct 59 mg/dL (75-193) L 09/07/18 20:00 HDL Cholesterol 38 mg/dL (23-92) 09/07/18 20:00 TSH 2.06 uIU/ml (0.34-5.60) 09/07/18 20:00 Levetiracetam 17.0 ug/mL (10.0-40.0) 09/07/18 20:00 - Physical Exam Vitals and I&O: Vital Signs Temp 98.1 F 09/16/18 20:01 Pulse 103 09/16/18 20:41 Resp 20 09/16/18 20:01 BP 140/71 09/16/18 20:41 Pulse Ox 94 09/16/18 20:01 Intake & Output 09/16/18 09/16/18 09/17/18 06:59 18:59 06:59 Intake Total 300 1000 180 Balance 300 1000 180 Intake: Oral 300 1000 180 Other: # Voids 1 3 2 # Bowel Movements 0 1 0 Active Medications: Current Medications Acetaminophen (Tylenol) 650 mg PO Q4H PRN PRN Reason: Pain or Fever >101 Stop: 11/07/18 00:09 Last Admin: 09/16/18 20:40 Dose: 650 mg Al Hydrox/Mg Hydrox/Simethicone (Maalox) 30 ml PO Q6HR PRN PRN Reason: GI DISTRESS Stop: 11/06/18 22:12 Ascorbic Acid (Vitamin C) 250 mg PO DAILY [facility] Stop: 11/07/18 08:59 Last Admin: 09/16/18 08:05 Dose: 250 mg Atorvastatin Calcium (Lipitor) 5 mg PO HS [facility]; Protocol Stop: 11/07/18 20:59 Last Admin: 09/16/18 20:39 Dose: 5 mg Dextrose (D50w) 50 ml IVP PRN PRN PRN Reason: Blood Glucose less than 70 Stop: 11/07/18 19:01 Dextrose (Glutose 40%) 18.75 gm PO PRN PRN PRN Reason: Blood Glucose less than 70 Stop: 11/07/18 19:01 Docusate Sodium (Colace) 250 mg PO DAILY [facility] Stop: 11/07/18 08:59 Last Admin: 09/16/18 08:06 Dose: 250 mg Fish Oil ([place] 3) 1,000 mg PO DAILY [facility] Stop: 11/07/18 08:59 Last Admin: 09/16/18 08:05 Dose: 1,000 mg Glucagon (Glucagen) 1 mg IM PRN PRN PRN Reason: Blood Glucose less than 70 Stop: 11/07/18 19:01 Insulin Human Lispro (Humalog Insulin Sliding Scale) 0 units SUBQ ACHS [facility]; Protocol Stop: 11/07/18 20:59 Last Admin: 09/16/18 20:39 Dose: Not Given Levetiracetam (Keppra) 500 mg PO BID [facility] Stop: 11/07/18 08:59 Last Admin: 09/16/18 16:32 Dose: 500 mg Levothyroxine Sodium (Synthroid) 0.025 mg PO QDAC [facility] Stop: 11/07/18 07:29 Last Admin: 09/16/18 06:46 Dose: 0.025 mg Lorazepam (Ativan) 0.5 mg PO DAILY [facility]; Protocol Stop: 11/07/18 08:59 Last Admin: 09/16/18 08:06 Dose: 0.5 mg Lorazepam (Ativan) 1 mg PO Q4H PRN; Protocol PRN Reason: Agitation Stop: 11/08/18 14:33 Last Admin: 09/16/18 00:07 Dose: 1 mg Magnesium Hydroxide (Milk Of Magnesia) 30 ml PO HS PRN PRN Reason: Constipation Stop: 11/06/18 22:12 Metformin HCl (Glucophage) 1,000 mg PO BIDWM [facility] Stop: 11/07/18 07:59 Last Admin: 09/16/18 18:07 Dose: 1,000 mg Metoprolol Tartrate (Lopressor) 25 mg PO Q12H [facility] Stop: 11/07/18 08:59 Last Admin: 09/16/18 20:41 Dose: 25 mg Olanzapine (Zyprexa) 10 mg PO BID [facility]; Protocol Stop: 11/08/18 16:59 Last Admin: 09/16/18 16:32 Dose: 10 mg Pantoprazole Sodium (Protonix) 40 mg PO DAILY [facility] Stop: 11/07/18 08:59 Last Admin: 09/16/18 08:19 Dose: 40 mg General: alert HEENT: NC/AT, PERRLA, EOMI, anicteric sclerae, throat clear Neck: No JVD, No thyromegaly, +2 carotid pulse wo bruit, No LAD Lungs: CTAB Cardiovascular: Normal S1, Normal S2, without murmur Abdomen: soft, non-tender, non-distended Extremities: clear Neurological: no change, alert Internal Medicine Assmt/Plan - Assessment Assessment: 1.DM. 2.HTN. 3.HYPOTHYROIDISM. 4.PSYCHOSIS - Plan Plan: CONTINUE ON CURRENT MEDICATION AND DIET. Nutritional Asmnt/Malnutr-PDOC - Dietary Evaluation Malnutrition Findings (Please click <Entered> for more info): Nutritional Asmnt/Malnutrition Start: 09/11/18 14: 17 Text: Status: Complete Freq: Protocol: Document 09/11/18 14:24 LCAMIEG (Rec: 09/11/18 14:28 LCHENG [email or web address]) Nutritional Asmnt/Malnutrition Patient General Information Nutritional Screening Moderate Risk Diagnosis psychosis Pertinent Medical Hx/Surgical Hx HTN, DM, CAD, dyslipidemia, PUD/GERD, thyroid disorder, dementia, deression Subjective Information Pt seen eating lunch in dining room, confused, not able to answer RD questions. Per EMR, PO intake 100%. Current Diet Order/ Nutrition Support [facility] Pertinent Medications vit C, lipitor, colace, omega 3, humalog, synthroid, glucophage, protonix Pertinent Labs 09/10-09/11 POC 87-153 09/07 Cr 0.5, glucose 110, Alb 4.1 Nutritional Hx/Data Height 1.73 m Height (Calculated Centimeters) 172.7 Current Weight (lbs) 63.503 kg Weight (Calculated Kilograms) 63.5 Weight (Calculated Grams) 14646.9 [place] Body Weight 154 Body Mass Index (BMI) 21.2 Weight Status Approriate GI Symptoms GI Symptoms None Last BM 09/10 Difficult in: None Skin Integrity/Comment: dryness Current %PO Good (75-100%) Estimated Nutritional Goals BEE in Kcals: Using Current wt Calories/Kcals/Kg 25-30 Kcals Calculated 6433-8469 Protein: Using Current wt Protein g/k Protein Calculated 64 Fluid: ml 1600-1920ml (1ml/kcal) Nutritional Problem No current Nutrition Prob Problem N/A Malnutrition Alert Is there a minimum of two criteria No selected? Query Text:Check all the applicable criteria. A minimum of two criteria are recommended for diagnosis of either severe or non-severe malnutrition. Malnutrition Related to Morbid Obesity Malnutrition related to morbid obesity No Intervention/Recommendation Comments 1. Continue with [facility] diet as ordered. 2. Monitor PO intake, wt, labs and skin integrity 3. F/U as low risk in 7 days Expected Outcomes/Goals Expected Outcomes/Goals 1. PO intake to meet at least 75% of nutritional needs. 2. Wt stability, skin to remain intact, labs to approach WNL.
--- NOTE | 2018-09-17 00:42 | Progress Notes ---
DATE: 09/16/[address] Mojica. Case was discussed with staff of the patient, reviewed records. This is a 72-year-old female who was admitted on 09/07/2018. The patient is confused. He believes this is 1946. Unable to tell the month. Continues to be irritable. He is demented. Unable to make safe plan for self-care or participate in a meaningful conversation. He has been compliant with the medication with no side effects, no sedation, no nausea, no extrapyramidal symptoms. The patient is olanzapine 10 mg twice a day. We will continue outpatient group therapy, milieu therapy, and adjust the medications as needed. JOB# [id number]
[2018-09-17] MEDS: INSULIN LISPRO SLIDING SCALE 100 UNITS/ML UNIT SUBQ SCH ×4 (06:29→20:28)
[2018-09-17] MEDS: Levothyroxine 0.025 Mg Tab PO SCH (06:30)
[2018-09-17] MEDS: Fish Oil 1,000 MG SGL PO SCH (09:19)
[2018-09-17] MEDS: Multivitamin w/ Minerals Tab PO SCH (09:20)
[2018-09-17] MEDS: Pantoprazole 40 mg EC Tab PO SCH (09:20)
--- NOTE | 2018-09-17 19:16 | Internal Medicine Prog Note ---
Internal Medicine Subjective - Subjective Service Date: 09/17/18 Patient seen and examined:: without staff Patient is:: awake, verbal, in bed, confused Per staff patient has:: no adverse event Internal Medicine Objective - Results Result Diagrams: 09/07/18 20:00 09/07/18 20:00 Recent Labs: Laboratory Last Values WBC 6.0 Th/cmm (4.8-10.8) 09/07/18 20:00 RBC 4.71 Mil/cmm (3.80-5.80) 09/07/18 20:00 Hgb 11.1 gm/dL (12-16) L 09/07/18 20:00 Hct 34.1 % (41.0-60) L 09/07/18 20:00 MCV 72.4 fl (80-99) L 09/07/18 20:00 MCH 23.5 pg (27.0-31.0) L 09/07/18 20:00 MCHC Differential 32.5 pg (28.0-36.0) 09/07/18 20:00 RDW 19.3 % (11.5-20.0) 09/07/18 20:00 Plt Count 317 Th/cmm (150-400) 09/07/18 20:00 MPV 8.4 fl 09/07/18 20:00 Neutrophils % 74.8 % (40.0-80.0) 09/07/18 20:00 Lymphocytes % 14.4 % (20.0-50.0) L 09/07/18 20:00 Monocytes % 9.3 % (2.0-10.0) 09/07/18 20:00 Eosinophils % 1.0 % (0.0-5.0) 09/07/18 20:00 Basophils % 0.5 % (0.0-2.0) 09/07/18 20:00 PT 10.7 SECONDS (9.5-11.5) 09/07/18 20:00 INR 1.03 (0.5-1.4) 09/07/18 20:00 Sodium 138 mEq/L (136-145) 09/07/18 20:00 Potassium 4.0 mEq/L (3.5-5.1) 09/07/18 20:00 Chloride 99 mEq/L (98-107) 09/07/18 20:00 Carbon Dioxide 27.8 mEq/L (21.0-31.0) 09/07/18 20:00 Anion Gap 15.2 (7.0-16.0) 09/07/18 20:00 BUN 17 mg/dL (7-25) 09/07/18 20:00 Creatinine 0.5 mg/dL (0.7-1.3) L 09/07/18 20:00 Est GFR ( Amer) TNP 09/07/18 20:00 Est GFR (Non-Af Amer) TNP 09/07/18 20:00 BUN/Creatinine Ratio 34.0 09/07/18 20:00 Glucose 110 mg/dL (70-105) H 09/07/18 20:00 POC Glucose 100 MG/DL (70 - 105) 09/17/18 16:49 Calcium 9.1 mg/dL (8.6-10.3) 09/07/18 20:00 Total Bilirubin 0.3 mg/dL (0.3-1.0) 09/07/18 20:00 AST 11 U/L (13-39) L 09/07/18 20:00 ALT 11 U/L (7-52) 09/07/18 20:00 Alkaline Phosphatase 46 U/L (34-104) 09/07/18 20:00 Troponin I < 0.01 ng/mL (0.01-0.05) L 09/07/18 20:00 Total Protein 6.0 gm/dL (6.0-8.3) 09/07/18 20:00 Albumin 4.1 gm/dL (4.2-5.5) L 09/07/18 20:00 Globulin 1.9 gm/dL 09/07/18 20:00 Albumin/Globulin Ratio 2.2 (1.0-1.8) H 09/07/18 20:00 Triglycerides 96 mg/dL (<150) 09/07/18 20:00 Cholesterol 103 mg/dL (<200) 09/07/18 20:00 LDL Cholesterol Direct 59 mg/dL (75-193) L 09/07/18 20:00 HDL Cholesterol 38 mg/dL (23-92) 09/07/18 20:00 TSH 2.06 uIU/ml (0.34-5.60) 09/07/18 20:00 Levetiracetam 17.0 ug/mL (10.0-40.0) 09/07/18 20:00 - Physical Exam Vitals and I&O: Vital Signs Temp 97.5 F 09/17/18 14:00 Pulse 91 09/17/18 14:00 Resp 20 09/17/18 14:00 BP 130/86 09/17/18 14:00 Pulse Ox 95 09/17/18 14:00 Intake & Output 09/17/18 09/17/18 09/18/18 06:59 18:59 06:59 Intake Total 180 Balance 180 Intake: Oral 180 Other: # Voids 3 # Bowel Movements 0 Active Medications: Current Medications Acetaminophen (Tylenol) 650 mg PO Q4H PRN PRN Reason: Pain or Fever >101 Stop: 11/07/18 00:09 Last Admin: 09/16/18 20:40 Dose: 650 mg Al Hydrox/Mg Hydrox/Simethicone (Maalox) 30 ml PO Q6HR PRN PRN Reason: GI DISTRESS Stop: 11/06/18 22:12 Ascorbic Acid (Vitamin C) 250 mg PO DAILY [facility] Stop: 11/07/18 08:59 Last Admin: 09/17/18 09:19 Dose: 250 mg Atorvastatin Calcium (Lipitor) 5 mg PO [facility]; Protocol Stop: 11/07/18 20:59 Last Admin: 09/16/18 20:39 Dose: 5 mg Dextrose (D50w) 50 ml IVP PRN PRN PRN Reason: Blood Glucose less than 70 Stop: 11/07/18 19:01 Dextrose (Glutose 40%) 18.75 gm PO PRN PRN PRN Reason: Blood Glucose less than 70 Stop: 11/07/18 19:01 Docusate Sodium (Colace) 250 mg PO DAILY [facility] Stop: 11/07/18 08:59 Last Admin: 09/17/18 09:19 Dose: 250 mg Fish Oil ([place] 3) 1,000 mg PO DAILY [facility] Stop: 11/07/18 08:59 Last Admin: 09/17/18 09:19 Dose: 1,000 mg Glucagon (Glucagen) 1 mg IM PRN PRN PRN Reason: Blood Glucose less than 70 Stop: 11/07/18 19:01 Insulin Human Lispro (Humalog Insulin Sliding Scale) 0 units SUBQ ACHS [facility]; Protocol Stop: 11/07/18 20:59 Last Admin: 09/17/18 18:22 Dose: Not Given Levetiracetam (Keppra) 500 mg PO BID [facility] Stop: 11/07/18 08:59 Last Admin: 09/17/18 16:12 Dose: 500 mg Levothyroxine Sodium (Synthroid) 0.025 mg PO QDAC [facility] Stop: 11/07/18 07:29 Last Admin: 09/17/18 06:30 Dose: 0.025 mg Lorazepam (Ativan) 0.5 mg PO DAILY [facility]; Protocol Stop: 11/07/18 08:59 Last Admin: 09/17/18 09:19 Dose: 0.5 mg Lorazepam (Ativan) 1 mg PO Q4H PRN; Protocol PRN Reason: Agitation Stop: 11/08/18 14:33 Last Admin: 09/17/18 12:57 Dose: 1 mg Magnesium Hydroxide (Milk Of Magnesia) 30 ml PO HS PRN PRN Reason: Constipation Stop: 11/06/18 22:12 Metformin HCl (Glucophage) 1,000 mg PO BIDWM [facility] Stop: 11/07/18 07:59 Last Admin: 09/17/18 18:22 Dose: 1,000 mg Metoprolol Tartrate (Lopressor) 25 mg PO Q12H [facility] Stop: 11/07/18 08:59 Last Admin: 09/17/18 09:19 Dose: Not Given Olanzapine (Zyprexa) 10 mg PO BID [facility]; Protocol Stop: 11/08/18 16:59 Last Admin: 09/17/18 16:12 Dose: 10 mg Pantoprazole Sodium (Protonix) 40 mg PO DAILY [facility] Stop: 11/07/18 08:59 Last Admin: 09/17/18 09:20 Dose: 40 mg General: alert HEENT: NC/AT, PERRLA, EOMI, anicteric sclerae, throat clear Neck: No JVD, No thyromegaly, +2 carotid pulse wo bruit, No LAD Lungs: CTAB Cardiovascular: Normal S1, Normal S2, without murmur Abdomen: soft, non-tender, non-distended Extremities: clear Neurological: no change, alert Internal Medicine Assmt/Plan - Assessment Assessment: 1.DM. 2.HTN. 3.HYPOTHYROIDISM. 4.PSYCHOSIS - Plan Plan: CONTINUE ON CURRENT MEDICATION AND DIET. Nutritional Asmnt/Malnutr-PDOC - Dietary Evaluation Malnutrition Findings (Please click <Entered> for more info): Nutritional Asmnt/Malnutrition Start: 09/11/18 14: 17 Text: Status: Complete Freq: Protocol: Document 09/11/18 14:24 LCHENG (Rec: 09/11/18 14:28 LCAMIEG [email or web address]) Nutritional Asmnt/Malnutrition Patient General Information Nutritional Screening Moderate Risk Diagnosis psychosis Pertinent Medical Hx/Surgical Hx HTN, DM, CAD, dyslipidemia, PUD/GERD, thyroid disorder, dementia, deression Subjective Information Pt seen eating lunch in dining room, confused, not able to answer RD questions. Per EMR, PO intake 100%. Current Diet Order/ Nutrition Support [facility] Pertinent Medications vit C, lipitor, colace, omega 3, humalog, synthroid, glucophage, protonix Pertinent Labs 09/10-09/11 POC 87-153 09/07 Cr 0.5, glucose 110, Alb 4.1 Nutritional Hx/Data Height 1.73 m Height (Calculated Centimeters) 172.7 Current Weight (lbs) 63.503 kg Weight (Calculated Kilograms) 63.5 Weight (Calculated Grams) 74175.9 [place] Body Weight 154 Body Mass Index (BMI) 21.2 Weight Status Approriate GI Symptoms GI Symptoms None Last BM 09/10 Difficult in: None Skin Integrity/Comment: dryness Current %PO Good (75-100%) Estimated Nutritional Goals BEE in Kcals: Using Current wt Calories/Kcals/Kg 25-30 Kcals Calculated 9260-2355 Protein: Using Current wt Protein g/k Protein Calculated 64 Fluid: ml 1600-1920ml (1ml/kcal) Nutritional Problem No current Nutrition Prob Problem N/A Malnutrition Alert Is there a minimum of two criteria No selected? Query Text:Check all the applicable criteria. A minimum of two criteria are recommended for diagnosis of either severe or non-severe malnutrition. Malnutrition Related to Morbid Obesity Malnutrition related to morbid obesity No Intervention/Recommendation Comments 1. [facility]. 2. Monitor PO intake, wt, labs and skin integrity 3. F/U as low risk in 7 days Expected Outcomes/Goals Expected Outcomes/Goals 1. PO intake to meet at least 75% of nutritional needs. 2. Wt stability, skin to remain intact, labs to approach WNL.
[2018-09-17] MEDS: Atorvastatin Calcium 10 MG TAB PO SCH (20:27)
--- NOTE | 2018-09-17 20:42 | Progress Notes ---
DATE: 09/17/2018 Case was discussed with staff of the patient, reviewed records. The patient continues to be confused, continues to be unpredictable, impulsive, needing direction, irritable, demented, confused, unable to make safe plan for self-care. No side effects to the medication, no sedation, no nausea, no extrapyramidal symptoms. We will continue outpatient group therapy, milieu therapy, and adjust the medications as needed. [facility]# [id number]
[2018-09-18] MEDS: INSULIN LISPRO SLIDING SCALE 100 UNITS/ML UNIT SUBQ SCH ×4 (06:35→20:46)
[2018-09-18] MEDS: Levothyroxine 0.025 Mg Tab PO SCH (06:38)
[2018-09-18] MEDS: Fish Oil 1,000 MG SGL PO SCH (08:32)
[2018-09-18] MEDS: Pantoprazole 40 mg EC Tab PO SCH (08:33)
[2018-09-18] MEDS: Multivitamin w/ Minerals Tab PO SCH (08:33)
[2018-09-18] MEDS: Atorvastatin Calcium 10 MG TAB PO SCH (20:45)
--- NOTE | 2018-09-18 21:59 | Internal Medicine Prog Note ---
Internal Medicine Subjective - Subjective Service Date: 09/18/18 Patient seen and examined:: without staff Patient is:: awake, verbal, in bed, confused Per staff patient has:: no adverse event Internal Medicine Objective - Results Result Diagrams: 09/07/18 20:00 09/07/18 20:00 Recent Labs: Laboratory Last Values WBC 6.0 Th/cmm (4.8-10.8) 09/07/18 20:00 RBC 4.71 Mil/cmm (3.80-5.80) 09/07/18 20:00 Hgb 11.1 gm/dL (12-16) L 09/07/18 20:00 Hct 34.1 % (41.0-60) L 09/07/18 20:00 MCV 72.4 fl (80-99) L 09/07/18 20:00 MCH 23.5 pg (27.0-31.0) L 09/07/18 20:00 MCHC Differential 32.5 pg (28.0-36.0) 09/07/18 20:00 RDW 19.3 % (11.5-20.0) 09/07/18 20:00 Plt Count 317 Th/cmm (150-400) 09/07/18 20:00 MPV 8.4 fl 09/07/18 20:00 Neutrophils % 74.8 % (40.0-80.0) 09/07/18 20:00 Lymphocytes % 14.4 % (20.0-50.0) L 09/07/18 20:00 Monocytes % 9.3 % (2.0-10.0) 09/07/18 20:00 Eosinophils % 1.0 % (0.0-5.0) 09/07/18 20:00 Basophils % 0.5 % (0.0-2.0) 09/07/18 20:00 PT 10.7 SECONDS (9.5-11.5) 09/07/18 20:00 INR 1.03 (0.5-1.4) 09/07/18 20:00 Sodium 138 mEq/L (136-145) 09/07/18 20:00 Potassium 4.0 mEq/L (3.5-5.1) 09/07/18 20:00 Chloride 99 mEq/L (98-107) 09/07/18 20:00 Carbon Dioxide 27.8 mEq/L (21.0-31.0) 09/07/18 20:00 Anion Gap 15.2 (7.0-16.0) 09/07/18 20:00 BUN 17 mg/dL (7-25) 09/07/18 20:00 Creatinine 0.5 mg/dL (0.7-1.3) L 09/07/18 20:00 Est GFR ( Amer) TNP 09/07/18 20:00 Est GFR (Non-Af Amer) TNP 09/07/18 20:00 BUN/Creatinine Ratio 34.0 09/07/18 20:00 Glucose 110 mg/dL (70-105) H 09/07/18 20:00 POC Glucose 115 MG/DL (70 - 105) H 09/18/18 19:35 Calcium 9.1 mg/dL (8.6-10.3) 09/07/18 20:00 Total Bilirubin 0.3 mg/dL (0.3-1.0) 09/07/18 20:00 AST 11 U/L (13-39) L 09/07/18 20:00 ALT 11 U/L (7-52) 09/07/18 20:00 Alkaline Phosphatase 46 U/L (34-104) 09/07/18 20:00 Troponin I < 0.01 ng/mL (0.01-0.05) L 09/07/18 20:00 Total Protein 6.0 gm/dL (6.0-8.3) 09/07/18 20:00 Albumin 4.1 gm/dL (4.2-5.5) L 09/07/18 20:00 Globulin 1.9 gm/dL 09/07/18 20:00 Albumin/Globulin Ratio 2.2 (1.0-1.8) H 09/07/18 20:00 Triglycerides 96 mg/dL (<150) 09/07/18 20:00 Cholesterol 103 mg/dL (<200) 09/07/18 20:00 LDL Cholesterol Direct 59 mg/dL (75-193) L 09/07/18 20:00 HDL Cholesterol 38 mg/dL (23-92) 09/07/18 20:00 TSH 2.06 uIU/ml (0.34-5.60) 09/07/18 20:00 Levetiracetam 17.0 ug/mL (10.0-40.0) 09/07/18 20:00 - Physical Exam Vitals and I&O: Vital Signs Temp 98.9 F 09/18/18 20:00 Pulse 68 09/18/18 20:46 Resp 20 09/18/18 20:00 BP 124/70 09/18/18 20:46 Pulse Ox 97 09/18/18 20:00 Intake & Output 09/18/18 09/18/18 09/19/18 06:59 18:59 06:59 Intake Total 120 Balance 120 Intake: Oral 120 Other: # Voids 3 # Bowel Movements 0 Active Medications: Current Medications Acetaminophen (Tylenol) 650 mg PO Q4H PRN PRN Reason: Pain or Fever >101 Stop: 11/07/18 00:09 Last Admin: 09/16/18 20:40 Dose: 650 mg Al Hydrox/Mg Hydrox/Simethicone (Maalox) 30 ml PO Q6HR PRN PRN Reason: GI DISTRESS Stop: 11/06/18 22:12 Ascorbic Acid (Vitamin C) 250 mg PO DAILY [facility] Stop: 11/07/18 08:59 Last Admin: 09/18/18 08:31 Dose: 250 mg Atorvastatin Calcium (Lipitor) 5 mg PO [facility]; Protocol Stop: 11/07/18 20:59 Last Admin: 09/18/18 20:45 Dose: 5 mg Dextrose (D50w) 50 ml IVP PRN PRN PRN Reason: Blood Glucose less than 70 Stop: 11/07/18 19:01 Dextrose (Glutose 40%) 18.75 gm PO PRN PRN PRN Reason: Blood Glucose less than 70 Stop: 11/07/18 19:01 Docusate Sodium (Colace) 250 mg PO DAILY [facility] Stop: 11/07/18 08:59 Last Admin: 09/18/18 08:32 Dose: 250 mg Fish Oil ([place] 3) 1,000 mg PO DAILY [facility] Stop: 11/07/18 08:59 Last Admin: 09/18/18 08:32 Dose: 1,000 mg Glucagon (Glucagen) 1 mg IM PRN PRN PRN Reason: Blood Glucose less than 70 Stop: 11/07/18 19:01 Insulin Human Lispro (Humalog Insulin Sliding Scale) 0 units SUBQ ACHS [facility]; Protocol Stop: 11/07/18 20:59 Last Admin: 09/18/18 20:46 Dose: Not Given Levetiracetam (Keppra) 500 mg PO BID [facility] Stop: 11/07/18 08:59 Last Admin: 09/18/18 16:34 Dose: 500 mg Levothyroxine Sodium (Synthroid) 0.025 mg PO QDAC SANDRA Stop: 11/07/18 07:29 Last Admin: 09/18/18 06:38 Dose: 0.025 mg Lorazepam (Ativan) 0.5 mg PO DAILY [facility]; Protocol Stop: 11/07/18 08:59 Last Admin: 09/18/18 08:32 Dose: 0.5 mg Lorazepam (Ativan) 1 mg PO Q4H PRN; Protocol PRN Reason: Agitation Stop: 11/08/18 14:33 Last Admin: 09/17/18 20:29 Dose: 1 mg Magnesium Hydroxide (Milk Of Magnesia) 30 ml PO HS PRN PRN Reason: Constipation Stop: 11/06/18 22:12 Metformin HCl (Glucophage) 1,000 mg PO BIDWM SANDRA Stop: 11/07/18 07:59 Last Admin: 09/18/18 17:11 Dose: 1,000 mg Metoprolol Tartrate (Lopressor) 25 mg PO Q12H [facility] Stop: 11/07/18 08:59 Last Admin: 09/18/18 20:46 Dose: 25 mg Olanzapine (Zyprexa) 10 mg PO BID [facility]; Protocol Stop: 11/08/18 16:59 Last Admin: 09/18/18 16:34 Dose: 10 mg Pantoprazole Sodium (Protonix) 40 mg PO DAILY [facility] Stop: 11/07/18 08:59 Last Admin: 09/18/18 08:33 Dose: 40 mg General: alert HEENT: NC/AT, PERRLA, EOMI, anicteric sclerae, throat clear Neck: No JVD, No thyromegaly, +2 carotid pulse wo bruit, No LAD Lungs: CTAB Cardiovascular: Normal S1, Normal S2, without murmur Abdomen: soft, non-tender, non-distended Extremities: clear Neurological: no change, alert Internal Medicine Assmt/Plan - Assessment Assessment: 1.DM. 2.HTN. 3.HYPOTHYROIDISM. 4.PSYCHOSIS - Plan Plan: CONTINUE ON CURRENT MEDICATION AND DIET. Nutritional Asmnt/Malnutr-PDOC - Dietary Evaluation Malnutrition Findings (Please click <Entered> for more info): Nutritional Asmnt/Malnutrition Start: 09/11/18 14: 17 Text: Status: Complete Freq: Protocol: Document 09/11/18 14:24 LCHENG (Rec: 09/11/18 14:28 [email or web address] [id number]) Nutritional Asmnt/Malnutrition Patient General Information Nutritional Screening Moderate Risk Diagnosis psychosis Pertinent Medical Hx/Surgical Hx HTN, DM, CAD, dyslipidemia, PUD/GERD, thyroid disorder, dementia, deression Subjective Information Pt seen eating lunch in dining room, confused, not able to answer RD questions. Per EMR, PO intake 100%. Current Diet Order/ Nutrition Support [facility] Pertinent Medications vit C, lipitor, colace, omega 3, humalog, synthroid, glucophage, protonix Pertinent Labs 09/10-09/11 POC 87-153 09/07 Cr 0.5, glucose 110, Alb 4.1 Nutritional Hx/Data Height 1.73 m Height (Calculated Centimeters) 172.7 Current Weight (lbs) 63.503 kg Weight (Calculated Kilograms) 63.5 Weight (Calculated Grams) 57268.9 [place] Body Weight 154 Body Mass Index (BMI) 21.2 Weight Status Approriate GI Symptoms GI Symptoms None Last BM 09/10 Difficult in: None Skin Integrity/Comment: dryness Current %PO Good (75-100%) Estimated Nutritional Goals BEE in Kcals: Using Current wt Calories/Kcals/Kg 25-30 Kcals Calculated 3583-1862 Protein: Using Current wt Protein g/k Protein Calculated 64 Fluid: ml 1600-1920ml (1ml/kcal) Nutritional Problem No current Nutrition Prob Problem N/A Malnutrition Alert Is there a minimum of two criteria No selected? Query Text:Check all the applicable criteria. A minimum of two criteria are recommended for diagnosis of either severe or non-severe malnutrition. Malnutrition Related to Morbid Obesity Malnutrition related to morbid obesity No Intervention/Recommendation Comments 1. Continue with [facility] diet as ordered. 2. Monitor PO intake, wt, labs and skin integrity 3. F/U as low risk in 7 days Expected Outcomes/Goals Expected Outcomes/Goals 1. PO intake to meet at least 75% of nutritional needs. 2. Wt stability, skin to remain intact, labs to approach WNL.
[2018-09-19] MEDS: Levothyroxine 0.025 Mg Tab PO SCH (06:36)
[2018-09-19] MEDS: INSULIN LISPRO SLIDING SCALE 100 UNITS/ML UNIT SUBQ SCH ×3 (06:36→17:10)
[2018-09-19] MEDS: Pantoprazole 40 mg EC Tab PO SCH (08:35)
[2018-09-19] MEDS: Fish Oil 1,000 MG SGL PO SCH (08:35)
[2018-09-19] MEDS: Multivitamin w/ Minerals Tab PO SCH (08:35)
--- NOTE | 2018-09-22 08:14 | Discharge Summary ---
DATE OF DISCHARGE: 09/19/2018 FINAL DIAGNOSIS/PRIMARY DIAGNOSIS: Schizoaffective disorder, depressive episode, severe with psychotic features. SECONDARY DIAGNOSIS: Dementia, moderate to severe. REASON FOR HOSPITALIZATION: The patient was admitted to the hospital from [facility] because of increased depression and because of confusion and psychosis. HOSPITAL COURSE: The patient continued to be severely depressed with hopeless and helpless feelings. The patient also continued to have intermittent thoughts of suicide. The patient was started on Zyprexa 10 mg twice a day. Gradually, the patient's affect was brighter. The patient was less irritable and less agitated. The patient also denied any thoughts of suicide or homicide and he was socializing more with peers and others. Dr. Gomez monitored the patient's seizure medications as well as his thyroid and diabetic medications. The patient had no major medical problems while in the hospital. AFTER DISCHARGE PLANS: The patient was discharged from the hospital and returned to [facility] with plans for followup there. EXPECTED OUTCOME AFTER DISCHARGE: Fair if the patient continued to take his psychotropic medications and follow up with discharge plans. JOB# [id number]
--- NOTE | 2018-09-22 18:16 | Progress Notes ---
DATE: 09/18/2018 DATE OF SERVICE: 09/18/2018 Chart reviewed and the patient interviewed, also discussed the patient's condition with the staff and reviewed records and labs. The patient continued to be irritable and angry mood and is still confused. The patient also is still impulsive and still needs lots of redirections. The patient also is still easily agitated and still has difficulty following directions and gets agitated when staff tried to be directed him. Otherwise, the patient continued to comply with taking Zyprexa 10 mg twice a day with no side effects. ASSESSMENT: The patient is still agitated and impulsive and needs lots of redirections. TREATMENT PLAN: Continue monitoring his behavior and condition closely. Also, continue adjusting psychotropic medications and work on behavioral modification and his agitation and impulsivity. JOB# [id number]
== END 2018-09-19 18:00 | DRG 885 ==
LOC: ER 19:32 → GERO2 21:30 → GERO 09-09 15:48
PROVIDERS: ADMIT Psychiatry & Neurology Psychiatry; ATTEND Psychiatry & Neurology Psychiatry
DX: F25.1 Schizoaffective disorder, depressive type (principal); F03.91 Unspecified dementia, unspecified severity, with behavioral disturbance; E11.9 Type 2 diabetes mellitus without complications; I10 Essential (primary) hypertension; E78.5 Hyperlipidemia, unspecified; E03.9 Hypothyroidism, unspecified; K21.9 Gastro-esophageal reflux disease without esophagitis; I48.91 Unspecified atrial fibrillation; D64.9 Anemia, unspecified; I25.10 Atherosclerotic heart disease of native coronary artery without angina pectoris; G40.909 Epilepsy, unspecified, not intractable, without status epilepticus; Z88.8 Allergy status to other drugs, medicaments and biological substances
CPT/HCPCS: 36415-UA; 71045-TC; 80053-TC; 80061-TC; 80299-90; 82948-90; 83036-90; 84443-TC; 84484-TC; 85025-TC; 85610-TC; 93005; 96374; A4216; G0410; J2060; J7051; J7799; Z7610